=== PATIENT | female | born 1940 | race Caucasian/White ===

== ENCOUNTER → 2016-05-23 | Outpatient (CLI) | payer MEDICARE ==
[2016-05-23 13:12] LABS: Basophils % (A) 0 %; CHCM 32.6; Eosinophils # (A) 0.3 k/uL (0-0.7); Eosinophils % (A) 5 %; HCT 36.7 % (34.0-46.0); HGB 12.1 gm/dL (11.4-16.0); Luc % (Auto) 2; Lymphocytes # (A) 1.6 k/uL (1.0-4.8); Lymphocytes % (A) 27 %; MCH 30.4 pg (25.0-35.0); MCHC 32.9 g/dL (31.0-37.0); MCV 92.4 fL (80.0-100.0); Mean Platelet Volume 7.1; Monocytes # (A) 0.5 k/uL (0-1.0); Monocytes % (A) 8 %; Neutrophils # (A) 3.6 k/uL (1.3-7.7); Neutrophils % (A) 58 %; RBC 3.97 m/uL (3.80-5.40); RDW 14.6 % (11.5-15.5); WBC 6.1 k/uL (3.8-10.6); WBC (Perox) 5.92
[2016-05-23 13:18] LABS: Amorphous Sediment,Urine Rare /hpf; Appearance,Urine Cloudy (Clear); Bacteria,Urine Occasional /hpf; Bilirubin,Urine Negative (Negative); Glucose,Urine (UA) Negative (Negative); INR 1.1 (<1.1); Ketones,Urine Negative (Negative); Leukocyte Esterase,Urine Large (Negative); Mucus,Urine Rare /hpf; Nitrite,Urine Negative (Negative); Particle Count 5460; Protein,Urine Negative (Negative); Prothrombin Time 10.8 sec (9.0-12.0); RBC,Urine 2 /hpf (0-5); Specific Gravity,Urine 1.011 (1.001-1.035); Squamous Epithelial Cell,Urine 1 /hpf (0-4); UA Billing (MACRO vs. MICRO) MICRO; Urobilinogen,Urine <2.0 mg/dL (<2.0); WBC,Urine >182 /hpf (0-5)
[2016-05-23 13:20] LABS: Anion Gap 11 mmol/L; Carbon Dioxide 23 mmol/L (22-30); Chloride 109 mmol/L (98-107); Non-African American GFR(MDRD) >60 (>60 ml/min/1.73 sqM); Sodium 143 mmol/L (137-145)
[2016-05-23 13:30] LABS: Partial Thromboplastin Time 19.8 sec (22.0-30.0)
[2016-05-23 13:59] LABS: Blood Urea Nitrogen 25 mg/dL (7-17); Potassium 5.7 mmol/L (3.5-5.1)
== END | disposition home or self-care (01) ==
LOC: LABWHC1 12:34
PROVIDERS: ATTEND Specialist
DX: M48.06 Spinal stenosis, lumbar region (principal)
CPT/HCPCS: 36415; 80051; 81001; 82565; 84520; 85025; 85610; 85730; 87070

== ENCOUNTER → 2016-07-27 | Outpatient (CLI) | payer MEDICARE ==
[2016-07-27 12:46] LABS: Blood Urea Nitrogen 20 mg/dL (7-17); Non-African American GFR(MDRD) >60 (>60 ml/min/1.73 sqM)
== END | disposition home or self-care (01) ==
LOC: RADCTMAIN 11:59
PROVIDERS: ATTEND Internal Medicine Sleep Medicine
DX: R91.1 Solitary pulmonary nodule (principal)
CPT/HCPCS: 82565; 84520

== ENCOUNTER 2016-08-07 06:49 | Day surgery (SDC) | payer MEDICARE ==
[2016-08-03 13:32] VITALS: BMI 27.8
[~2016-08-07 06:49] MED LIST: LACTATED RINGERS 1,000 ML IV SCH; LIDOCAINE 1% 20 ML VIAL (10MG/ML) FOR IV START INTRADERMA PRN
[2016-08-07 07:15] VITALS: TEMP 97.8
[2016-08-07 07:38] LABS: Glucose,Whole Blood 71 mg/dL (75-99)
[2016-08-07] MEDS ORDERED: PROPOFOL 10 MG/ML 20 ML VIAL IV ONE (07:45)
--- NOTE | 2016-08-07 07:54 | P.GSHP ---
History of Present Illness H&P Date: 08/07/16 Chief Complaint: GI bleed This is a 76-year-old female who presents today for colonoscopy. She's had issues of GI bleed. - Constitutional Constitutional: Reports as per HPI Past Medical History Past Medical History: Asthma, Diabetes Mellitus, Hyperlipidemia, Hypertension, Myocardial Infarction (NM) Additional Past Medical History / Comment(s): HAD EPISODE OF RECTAL BLEEDING AT [facility] THIS YEAR. NM X 2 Last Myocardial Infarction Date:: 2009 History of Any Multi-Drug Resistant Organisms: None Reported Past Surgical History: Back Surgery, Heart Catheterization With Stent, Hysterectomy Additional Past Surgical History / Comment(s): BILAT CATARACTS REMOVED Past Anesthesia/Blood Transfusion Reactions: No Reported Reaction Date of Last Stent Placement:: 2009 Past Psychological History: Anxiety Smoking Status: Never smoker Past Alcohol Use History: Occasional Past Drug Use History: None Reported - Past Family History Father Family Medical History: Cancer Medications and Allergies Home Medications Medication Instructions Recorded Confirmed Type Insulin Lispro [humaLOG Kwikpen] 15 unit SQ 08/02/16 08/02/16 History Pioglitazone [Actos] 15 mg PO DAILY 08/02/16 08/02/16 History metFORMIN HCL [Glucophage] 500 mg PO BID 08/02/16 08/02/16 History ALPRAZolam [Xanax] 0.5 mg PO BID 08/03/16 08/03/16 History Aspirin 325 mg PO DAILY 08/03/16 08/03/16 History Atorvastatin [Lipitor] 20 mg PO HS 08/03/16 08/03/16 History Isosorbide Mononitrate ER [Imdur] 60 mg PO DAILY 08/03/16 08/03/16 History Metoprolol Succinate [Toprol XL] 25 mg PO BID 08/03/16 08/03/16 History Montelukast [Singulair] 10 mg PO DAILY 08/03/16 08/03/16 History amLODIPine BESYLATE/BENAZEPRIL 1 each PO DAILY 08/03/16 08/03/16 History [amLODIPine BESYLATE/BENAZEPRIL 5-20 mg] Allergies Allergy/AdvReac Type Severity Reaction Status Date / Time No Known Allergies Allergy Verified 08/02/16 13:04 Surgical - Exam Vital Signs Temp Pulse Resp BP Pulse Ox 97.8 F 71 14 162/63 100 08/07/16 07:14 08/07/16 07:14 08/07/16 07:14 08/07/16 07:14 08/07/16 07:14 - General well developed, no distress - Eyes PERRL - ENT normal pinna - Neck no masses - Respiratory normal expansion - Cardiovascular Rhythm: regular - Abdomen Abdomen: soft, non tender Results - Labs Abnormal Lab Results - Last 24 Hours (Table) 08/07/16 Range/Units 07:33 POC Glucose (mg/dL) 71 L (75-99) mg/dL Assessment and Plan Plan: GI bleed. We'll perform colonoscopy
--- NOTE | 2016-08-07 08:10 | P.OP ---
Date of Procedure: 08/07/16 Preoperative Diagnosis: GI bleed Postoperative Diagnosis: Right colon polyp Diverticulosis Internal and external hemorrhoids Procedure(s) Performed: Colonoscopy Implants: Anesthesia: MAC Surgeon: Jarett Richey Pathology: other (Right colon polyp) Condition: stable Disposition: PACU Indications for Procedure: Operative Findings: Description of Procedure: The patient's placed on the endoscopy table in the lateral position. She received IV sedation. Digital rectal exam was performed which revealed internal and external hemorrhoids. The flexible colonoscope was then placed patient anus and passed throughout the entire colon. The ileocecal valve was visualized. The cecum appeared normal. In the right colon there is a small sessile polyp was removed the forcep. There were some mild diverticular changes in the right colon. The scope was then brought back and the transverse colon and some more diverticular changes were seen. The scope summer back in the descending; and there is extensive diverticular changes. Scope was then brought back the rectum and this appeared normal. The scope was withdrawn for patient.
[2016-08-07 08:18] VITALS: RESP 16
[2016-08-07 08:34] VITALS: BP 173/73; PULSE 64
== END 2016-08-07 08:52 | disposition home or self-care (01) ==
LOC: ORWHC2ENDO 06:49
PROVIDERS: ATTEND Surgery
DX: D12.2 Benign neoplasm of ascending colon (principal); K57.30 Diverticulosis of large intestine without perforation or abscess without bleeding; K64.8 Other hemorrhoids; K64.4 Residual hemorrhoidal skin tags; E11.9 Type 2 diabetes mellitus without complications; Z79.84 Long term (current) use of oral hypoglycemic drugs; Z79.4 Long term (current) use of insulin; J45.909 Unspecified asthma, uncomplicated; E78.5 Hyperlipidemia, unspecified; I10 Essential (primary) hypertension; I25.2 Old myocardial infarction; F41.9 Anxiety disorder, unspecified; Z79.82 Long term (current) use of aspirin; Z79.899 Other long term (current) drug therapy
CPT/HCPCS: 88305; 45380; J2704

== ENCOUNTER → 2017-04-03 | Outpatient (CLI) | payer MEDICARE ==
--- NOTE | 2017-04-03 14:46 | XR ---
Left shoulder HISTORY: Left shoulder pain 3 views of the left shoulder No comparisons Postop changes are noted to the cervical spine. There is evidence of old granulomatous disease in the left hemithorax. Bone mineralization is reduced. Acromioclavicular joint arthropathy changes present . Alignment and joint spaces are maintained. IMPRESSION: No fracture or dislocation. Osteopenia. Follow-up as indicated. Additional findings above .
== END | disposition home or self-care (01) ==
LOC: RADXRMAIN 11:48
PROVIDERS: ATTEND Family Medicine
DX: M85.812 Other specified disorders of bone density and structure, left shoulder (principal)

== ENCOUNTER → 2017-07-02 | Outpatient (CLI) | payer MEDICARE ==
[2017-07-02 15:31] LABS: Basophils % (A) 0 %; Eosinophils # (A) 0.3 k/uL (0-0.7); Eosinophils % (A) 2 %; HCT 37.5 % (34.0-46.0); Lymphocytes # (A) 2.4 k/uL (1.0-4.8); Lymphocytes % (A) 20 %; MCH 29.9 pg (25.0-35.0); MCHC 31.9 g/dL (31.0-37.0); MCV 93.7 fL (80.0-100.0); Mean Platelet Volume 7.7; Monocytes # (A) 0.6 k/uL (0-1.0); Monocytes % (A) 5 %; Neutrophils # (A) 8.8 k/uL (1.3-7.7); Neutrophils % (A) 72 %; Platelet Count 268 k/uL (150-450); RDW 14.9 % (11.5-15.5); WBC 12.2 k/uL (3.8-10.6)
--- NOTE | 2017-07-02 15:35 | XR ---
EXAMINATION TYPE: XR chest 2V DATE OF EXAM: 07/02/2017 COMPARISON: Prior chest 04/12/2012 HISTORY: Adhesive capsulitis left shoulder, 3 TECHNIQUE: Frontal and lateral views of the chest are obtained. FINDINGS: There is no focal air space opacity, pleural effusion, or pneumothorax seen. The cardiac silhouette size is within normal limits. Postop changes are noted in the lumbar and cervical spine. There are prominent lung volumes present. Coronary artery calcifications are suspected. The osseous structures are intact. IMPRESSION: No acute cardiopulmonary process.
== END | disposition home or self-care (01) ==
LOC: RADXRMAIN 14:33
PROVIDERS: ATTEND Orthopaedic Surgery
DX: Z01.818 Encounter for other preprocedural examination (principal); R05 Cough; M75.02 Adhesive capsulitis of left shoulder; Z01.812 Encounter for preprocedural laboratory examination
CPT/HCPCS: 36415; 71046; 85025

== ENCOUNTER → 2017-07-10 | Day surgery (SDC) | payer MEDICARE ==
[2017-07-09 09:43] VITALS: BMI 27.4
--- NOTE | 2017-07-09 10:38 | HP ---
HISTORY AND PHYSICAL CHIEF COMPLAINT: Left shoulder pain and stiffness. HISTORY OF PRESENT ILLNESS: Patient is a 77-year-old, right-hand dominant, retired female who presents with progressive left shoulder pain and stiffness after an injury in January of 2017. She herself pulling herself up. She has been in therapy with minimal relief. She notes pain with attempted use along with progressive stiffness. She is having night symptoms. PAST MEDICAL HISTORY: Significant for asthma, type 2 diabetes, hypertension and heart disease. PAST SURGICAL HISTORY: Significant for previous spine surgery along with cardiac catheterization. CURRENT MEDICATIONS: 1. Actos. 2. Aspirin. 3. Imdur. 4. Insulin. 5. Lipitor. 6. Lotrel. 7. Singulair. 8. Toprol. 9. Xanax. She denies drug allergies. FAMILY HISTORY: Significant for cancer. SOCIAL HISTORY: Negative for current tobacco or alcohol use. 16 POINT REVIEW OF SYSTEMS: Otherwise reviewed and is noncontributory. PHYSICAL EXAMINATION: The patient is approximately 5 foot 2, 148 pounds of endomorphic habitus. HEENT exam is nonfocal. Neck is supple. On examination of her left shoulder, she has tenderness about the anterior subacromial space. Moderate subacromial crepitus is noted. Active range of motion, forward elevation 80 degrees, external rotation with the arm side 50 degrees, internal rotation to L2. Passively, I am able to forward elevate her to 100 degrees. Motor strength is 5-/5 for external rotation with the arm at side and 4+/5 for abduction. Impingement, and Neer test are positive. Her distal neurovascular exam, otherwise appears intact in the left upper extremity. X-rays of the left shoulder obtained in the office showed a type 2 acromion with maintained humeral head to acromial distance. IMPRESSION: 1. Left shoulder adhesive capsulitis. 2. Diabetes. RECOMMENDATIONS: I talked to the patient at length regarding her condition and treatment options. At this point she is quite symptomatic despite extensive conservative measures. After thorough discussion, she opts to proceed with manipulation under anesthesia with subacromial cortisone injection. We will likely perform that as an outpatient procedure utilizing IV sedation. Risks and benefits were discussed at length in layman's terms. MMODL / IJN: [id number] /
[~2017-07-10] MED LIST changes: +BUPIVACAINE (PF) 0.25% 30 ML VIAL INTRAARTIC ONE; +KETOROLAC 30 MG/ML 1 ML VIAL ONE; +PROPOFOL 10 MG/ML 20 ML VIAL IV ONE; +ceFAZolin IN SWFI 2 GM/20 ML SYRINGE IVP ONE; +methylPREDNISolone ACETATE 80 MG/ML 1 ML VIAL INTRAARTIC ONE
[2017-07-10 09:51] LABS: Glucose,Whole Blood 82 mg/dL (75-99)
--- NOTE | 2017-07-10 11:12 | P.OP ---
Date of Procedure: 07/10/17 Preoperative Diagnosis: Left shoulder adhesive capsulitis Postoperative Diagnosis: Same Procedure(s) Performed: Manipulation under anesthesia left shoulder with subacromial cortisone injection Anesthesia: MAC Surgeon: Blas Alexandra Estimated Blood Loss (ml): 0 Pathology: none sent Condition: stable Disposition: PACU Indications for Procedure: The patient is a 77-year-old female who presents with progressive left shoulder pain and stiffness after a previous injury. Clinically she was noted of evidence of significant adhesive capsulitis. A discussion of the risks and benefits of manipulation under anesthesia with subacromial cortisone injection was made with patient. She opted to proceed with that. Risks of this procedure to include fracture, dislocation, possible tendon rerupture, possible recurrence of stiffness and need for subsequent procedures was discussed. Informed consent was obtained. Operative Findings: As below Description of Procedure: The patient was brought to the operating room, and after induction of IV sedation, the left shoulder was gently manipulated. First with the arm at the side I obtained 60 of external rotation. Moderate adhesions were encountered. I then obtained full forward elevation. Again there was moderate adhesions encountered. I felt I had adequate christianity of passive motion at this point. The posterior shoulder was prepped with ChloraPrep. 80 mg of Depo- Medrol and 5 mL of quarter percent plain Marcaine was injected into the posterior subacromial space. She was then monitored until fully awake. No complications were incurred. There was no blood loss.
[2017-07-10 11:23] VITALS: TEMP 97.3
[2017-07-10] MEDS: MORPHINE SULFATE 4 MG/0.8 ML SYRINGE (INJ) IV PRN ×3 (11:25→11:30)
[2017-07-10 11:40] VITALS: RESP 16
[2017-07-10 12:52] VITALS: BP 150/69; PULSE 69
[2017-07-10 12:54] LABS: Glucose,Whole Blood 89 mg/dL (75-99)
== END | disposition home or self-care (01) ==
LOC: OR 08:40
PROVIDERS: ATTEND Orthopaedic Surgery
DX: M75.02 Adhesive capsulitis of left shoulder (principal); E11.9 Type 2 diabetes mellitus without complications; J45.909 Unspecified asthma, uncomplicated; I11.9 Hypertensive heart disease without heart failure; I25.10 Atherosclerotic heart disease of native coronary artery without angina pectoris; Z79.82 Long term (current) use of aspirin; Z79.4 Long term (current) use of insulin; Z79.899 Other long term (current) drug therapy
CPT/HCPCS: 23700; J1040; J1885; J2704; J0690; J2270

== ENCOUNTER → 2017-12-25 | Outpatient (CLI) | payer MEDICARE | END | disposition home or self-care (01) | LOC: LABPAT 13:45 | PROVIDERS: ATTEND Orthopaedic Surgery | DX: Z01.812 Encounter for preprocedural laboratory examination (principal); M16.11 Unilateral primary osteoarthritis, right hip | CPT/HCPCS: 87070 ==

== ENCOUNTER 2018-01-01 08:00 | Inpatient (IN) | payer MEDICARE ==
[2017-12-21 11:27] VITALS: BMI 28.5
--- NOTE | 2017-12-31 10:12 | HP ---
HISTORY AND PHYSICAL CHIEF COMPLAINT: Right hip pain. HISTORY OF PRESENT ILLNESS: The patient is a 77-year-old retired female who presents with progressive right hip pain secondary to osteoarthrosis despite extensive conservative measures. She notes that the pain from her arthrosis severely limits her normal function and activities. PAST MEDICAL HISTORY: Significant for arthritis, asthma, type 2 diabetes, hypertension and heart disease. PAST SURGICAL HISTORY: Significant for cardiac catheterization along with lumbar fusion with instrumentation. CURRENT MEDICATIONS: 1. Actos. 2. Aspirin. 3. Insulin. 4. Lipitor. 5. Lotrel. 6. Metformin. 7. Singulair. 8. Toprol. 9. Xanax. ALLERGIES: She denies drug allergies. FAMILY HISTORY: Significant for cancer. SOCIAL HISTORY: Negative for current tobacco or alcohol use. REVIEW OF SYSTEMS: Sixteen-point review of systems otherwise reviewed and is noncontributory. PHYSICAL EXAMINATION: On examination, the patient is approximately 5 feet 2 inches, 148 pounds of mesomorphic habitus. HEENT exam is nonfocal. Neck is supple. Passive motion of the right hip, flexion 75 degrees, external rotation with the hip flexed is 45 degrees, internal rotation is 0 degrees with pain. Clinically, she has got 1 cm shortening of the right lower extremity compared to the left. Her distal neurovascular exam appears intact in the right lower extremity. AP of the pelvis obtained in the office show severe bilateral hip osteoarthrosis. IMPRESSION: 1. Right hip severe osteoarthrosis. 2. History of heart disease. 3. Xug-qbtdarw-cxzdhzdkv diabetes. 4. History of lumbar spine fusion with instrumentation. RECOMMENDATIONS: I talked to the patient at length regarding her condition and treatment options. At this point, she is quite symptomatic and limited because of pain. After a thorough discussion, she opts to proceed with surgery. We will plan to proceed with right total hip arthroplasty utilizing a direct anterior approach. We will likely institute DVT prophylaxis postoperatively. MMODL / IJN: [id number] /
[~2018-01-01 08:00] MED LIST changes: +ACETAMINOPHEN TAB 500 MG TAB PO ONE; -BUPIVACAINE (PF) 0.25% 30 ML VIAL INTRAARTIC ONE; -KETOROLAC 30 MG/ML 1 ML VIAL ONE; -LACTATED RINGERS 1,000 ML IV SCH; -LIDOCAINE 1% 20 ML VIAL (10MG/ML) FOR IV START INTRADERMA PRN; +MELOXICAM 7.5 MG TAB PO ONE; +ONDANSETRON 4 MG/2 ML VIAL IVP ONE; -PROPOFOL 10 MG/ML 20 ML VIAL IV ONE; +TRANEXAMIC ACID 1,000 MG in SODIUM CHLORIDE 0.9% 50 ML IVPB ONE; +fentaNYL (PF) 50 MCG/ML 2 ML AMP IV PRN; -methylPREDNISolone ACETATE 80 MG/ML 1 ML VIAL INTRAARTIC ONE
[2018-01-01 09:26] LABS: Glucose,Whole Blood 108 mg/dL (75-99)
[2018-01-01] MEDS: LACTATED RINGERS 1,000 ML IV SCH ×2 (09:26→19:45)
[2018-01-01] MEDS ORDERED: SODIUM CHLORIDE 0.9% IRRIG 1,000 ML BTL IRRIGATION ONE (10:33)
[2018-01-01] MEDS ORDERED: TRANEXAMIC ACID 1,000 MG/10 ML VIAL ONE (10:33)
[2018-01-01] MEDS ORDERED: fentaNYL (PF) 50 MCG/ML 2 ML AMP ONE (10:33)
[2018-01-01] MEDS ORDERED: SODIUM CHLORIDE 0.9% 100 ML BAG ONE (10:33)
[2018-01-01] MEDS ORDERED: LACTATED RINGERS 1,000 ML IV ONE (10:33)
[2018-01-01] MEDS ORDERED: MIDAZOLAM 2 MG/2 ML VIAL ONE (10:33)
[2018-01-01] MEDS ORDERED: PROPOFOL 10 MG/ML 20 ML VIAL IV ONE (10:33)
[2018-01-01] MEDS ORDERED: HEPARIN SODIUM,PORCINE 10,000 UNIT/ML 1 ML VIAL ONE (10:33)
[2018-01-01] MEDS ORDERED: ceFAZolin 3,000 MG in SODIUM CHLORIDE 0.9% IRRIGATIO 3,000 ML IRRIGATION ONE (11:29)
[2018-01-01] MEDS ORDERED: NALOXONE 0.4 MG/ML 1 ML VIAL IV PRN (12:50)
[2018-01-01] MEDS ORDERED: ACETAMINOPHEN TAB 325 MG TAB PO PRN (12:50)
[2018-01-01] MEDS ORDERED: ONDANSETRON 4 MG/2 ML VIAL IVP PRN (12:50)
[2018-01-01] MEDS ORDERED: HYDROmorphone 1 MG/ML 1 ML SYRINGE IVP PRN ×2 (12:50)
[2018-01-01] MEDS ORDERED: MAGNESIUM HYDROXIDE 2,400 MG/10 ML CUP PO PRN (12:50)
[2018-01-01] MEDS ORDERED: HYDROcodone/APAP 5-325MG 1 EACH TAB PO PRN (12:50)
--- NOTE | 2018-01-01 12:57 | XR ---
EXAMINATION TYPE: XR Hip Limited RT DATE OF EXAM: 01/01/2018 COMPARISON: NONE HISTORY: Postop TECHNIQUE: One view submitted. FINDINGS: There is postsurgical change in near anatomic alignment. There is soft tissue edema and emphysema. IMPRESSION: 1. Postoperative change. Appears in near-anatomic alignment.
--- NOTE | 2018-01-01 12:58 | FL ---
EXAMINATION TYPE: FL guidance operating room DATE OF EXAM: 01/01/2018 HISTORY: Flouroscopy time 1 minute and 37 seconds of fluoroscopy provided. IMPRESSION: 1. Fluoroscopy time.
--- NOTE | 2018-01-01 13:19 | P.OP ---
Date of Procedure: 01/01/18 Preoperative Diagnosis: Right hip severe osteoarthrosis Postoperative Diagnosis: Same Procedure(s) Performed: Right total hip itbffnwbhpjy-qxdxz-wsg-anterior approach Implants: Depuy Corail size 13 KLA press-fit femoral stem, +1/32 mm ceramic head, 52 mm Triangle acetabular shell with neutral polyethylene liner Anesthesia: spinal Surgeon: Blas Alexandra Film Projector Operator #1: Torrey Schaffer Estimated Blood Loss (ml): 250 Pathology: other (Femoral head) Condition: stable Disposition: PACU Indications for Procedure: The patient is a 77-year-old female who presents with progressive right hip pain secondary to osteoarthrosis despite conservative measures. A discussion of the risks and benefits of continued conservative measures versus operative intervention was made with patient. She opted to proceed with surgery. Operative risks to include infection, neurovascular injury, development of blood clots, possible component loosening, dislocation, leg length discrepancy and possible need for subsequent procedures was discussed. Informed consent was obtained. Operative Findings: As below Description of Procedure: The patient was brought to the operating room, and after induction of spinal anesthesia was positioned on the Kera table. Bony prominences were appropriately padded. The right lower extremity was prepped and draped in normal fashion. Fluoroscopy was was used to check that the pelvis was level. Preoperative templating was previously performed to estimated component positioning and sizes. A 10 cm incision was then made starting 3 finger breaths posterior and 2 fingerbreadths distal to the ASIS in line with the femoral shaft. The skin was incised sharply. Subcutaneous tissues were divided sharply. The fascia was identified. It was split anterior to the perforators. Blunt dissection was utilized to develop the plane between the tensor fascia lucía and sartorius. The posterior fascia was opened with electrocautery. The lateral circumflex vessels were identified and coagulative prior to suctioning. The rectus was elevated off the anterior capsule. A blunt retractor was placed along the superior femoral neck. A second retractor was placed along the anterior acetabular rim. The third retractors placed along the inferior femoral neck. A wide capsulotomy was performed. With the hip in 30 of external rotation, the femoral neck osteotomy was performed with a sagittal saw at a 45 of the shaft proximally 1 cm above the level of the lesser trochanter. The head was then extracted. The acetabulum was inspected. Anterior and posterior retractors were placed along the acetabulum. The remaining capsular labral tissue was sharply debrided clearly defining the acetabular margins. I began reaming with a 45 mm reamer taking care to initially medialize, then reaming at 45 of abduction and 20 of anteversion. Sequential reaming is performed up to 51 mm. This was done with the aid of fluoroscopy. A 52 mm acetabular shell was inserted in the same orientation and was fully seated. There was good rim fit and stability. The trial component was removed and the final one inserted in the same orientation. This is done with the aid of fluoroscopy. Again there is good purchase. A neutral polyethylene liner was then gently impacted. Attention was then paid towards preparing the proximal femur. The hip was externally rotated to 130 and fully extended and adducted. A retractor was placed along the medial calcar and over the greater trochanter. The central region was debrided exposing the whole femoral neck. Residual lateral neck was resected. A canal finder was used to find the femoral canal. Sequential broaching was performed up to a size 13 broach. This was parallel to the posterior cortex. A calcar mill was used to fashion the medial calcar. Trial reduction was obtained with a KLA neck along with a 32 mm +1 trial head. Fluoroscopy was used to check the adequacy of positioning and overall leg length. Hip was gently dislocated. The trial components were then removed. The final size 13 collared KLA femoral stem was inserted parallel to the posterior cortex and was fully seated. There was good rotational stability. A 32 mm +1 ceramic head was gently impacted. The hip was gently reduced. Again fluoroscopic view showed adequate placement of the implant along with overall muslim of leg length. Stability was checked at 60 of external rotation and 50 of extension of the hip. The wound was irrigated with pulsatile lavage. The fascia was closed with running 0 Vicryl suture. There is minimal drainage therefore a deep drain was not placed. Cell Saver was given back. The subcutaneous tissues were reapproximated interrupted 2-0 Vicryl sutures. The skin was reapproximated with 3-0 subcuticular strata fix suture. Skin tape and adhesive was applied. A sterile dressing was applied. The patient was then awoken from sedation and transferred to the recovery room in good condition. Blood loss was estimated at 250 mL. No complications were incurred. Sponge and needle counts were correct at the end the case.
[2018-01-01 13:24] LABS: Glucose,Whole Blood 93 mg/dL (75-99)
[2018-01-01] MEDS: HYDROmorphone 1 MG/ML 1 ML SYRINGE IVP PRN ×2 (13:36→14:32)
--- NOTE | 2018-01-01 13:42 | XR ---
EXAMINATION TYPE: XR Hip Limited RT DATE OF EXAM: 01/01/2018 COMPARISON: NONE HISTORY: Postop TECHNIQUE: One view submitted. FINDINGS: There is a prosthetic hip in near anatomic alignment. There is soft tissue edema and emphysema. IMPRESSION: 1. Postoperative change. Appears in near-anatomic alignment.
[2018-01-01] MEDS: ceFAZolin IN SWFI 2 GM/20 ML SYRINGE IVP SCH (18:29)
[2018-01-01] MEDS ORDERED: ALBUTEROL NEBULIZED 2.5 MG/3 ML INHALATION PRN (20:06)
[2018-01-01 20:17] LABS: Glucose,Whole Blood 115 mg/dL (75-99)
[2018-01-01] MEDS ORDERED: MONTELUKAST 10 MG TAB PO SCH (21:00)
[2018-01-01] MEDS ORDERED: ATORVASTATIN 20 MG TAB PO SCH (21:00)
[2018-01-01] MEDS ORDERED: SENNOSIDES-DOCUSATE SODIUM 1 EACH TAB PO SCH (21:00)
[2018-01-01] MEDS ORDERED: PIOGLITAZONE 30 MG TAB PO SCH (21:00)
[2018-01-01] MEDS: INSULIN ASPART 100 UNIT/ML 1 ML 10 ML VIAL SQ SCH (22:13)
[2018-01-01] MEDS: METOPROLOL SUCCINATE (ER) 25 MG TAB.ER.24H PO SCH (22:13)
[2018-01-01] MEDS: ALPRAZolam 0.5 MG TAB PO SCH (22:13)
[2018-01-01] MEDS: metFORMIN 500 MG TAB PO SCH (22:14)
[2018-01-01] MEDS: HYDROcodone/APAP 5-325MG 1 EACH TAB PO PRN (22:18)
[2018-01-02] MEDS: ceFAZolin IN SWFI 2 GM/20 ML SYRINGE IVP SCH (02:41)
[2018-01-02 07:11] LABS: Glucose,Whole Blood 124 mg/dL (75-99)
[2018-01-02] MEDS: INSULIN ASPART 100 UNIT/ML 1 ML 10 ML VIAL SQ SCH ×2 (07:24→11:38)
[2018-01-02] MEDS: metFORMIN 500 MG TAB PO SCH (07:28)
[2018-01-02 08:25] VITALS: BP 174/63; PULSE 73; RESP 17; TEMP 97.4
[2018-01-02] MEDS: ALPRAZolam 0.5 MG TAB PO SCH (08:44)
[2018-01-02] MEDS: METOPROLOL SUCCINATE (ER) 25 MG TAB.ER.24H PO SCH (08:45)
[2018-01-02] MEDS: HYDROcodone/APAP 5-325MG 1 EACH TAB PO PRN ×2 (08:45→13:52)
[2018-01-02] MEDS ORDERED: LISINOPRIL 20 MG TAB PO SCH (09:00)
[2018-01-02] MEDS ORDERED: RIVAROXABAN 10 MG TAB PO SCH (09:00)
[2018-01-02] MEDS ORDERED: amLODIPine 5 MG TAB PO SCH (09:00)
[2018-01-02] MEDS ORDERED: ISOSORBIDE MONONITRATE ER 60 MG TAB.ER.24H PO SCH (09:00)
[2018-01-02] MEDS ORDERED: LACTOBACILLUS ACIDOPH & BULGAR 1 EACH PACKET PO SCH (09:00)
[2018-01-02 10:32] LABS: Basophils % (A) 0 %; Eosinophils # (A) 0.3 k/uL (0-0.7); Eosinophils % (A) 3 %; HCT 34.1 % (34.0-46.0); HGB 11.1 gm/dL (11.4-16.0); Lymphocytes # (A) 1.3 k/uL (1.0-4.8); Lymphocytes % (A) 16 %; MCH 31.4 pg (25.0-35.0); MCHC 32.6 g/dL (31.0-37.0); Monocytes # (A) 0.8 k/uL (0-1.0); Monocytes % (A) 9 %; Neutrophils # (A) 5.8 k/uL (1.3-7.7); Neutrophils % (A) 71 %; Platelet Count 261 k/uL (150-450); RBC 3.55 m/uL (3.80-5.40); RDW 13.9 % (11.5-15.5); WBC 8.2 k/uL (3.8-10.6)
[2018-01-02 10:35] LABS: MCV 96.2 fL (80.0-100.0)
[2018-01-02 11:57] LABS: Glucose,Whole Blood 139 mg/dL (75-99)
--- NOTE | 2018-01-02 12:22 | P.PN ---
Subjective Progress Note Date: 01/02/18 Principal diagnosis: s/p right alysha Patient evaluated at bedside today, she resting comfortably. Her pain is controlled. She's ambulate well with therapy. She denies any chest pain, shortness of breath, fever or chills. Objective - Vital Signs Vital signs: Vital Signs Temp 97.4 F L 01/02/18 07:00 Pulse 73 01/02/18 07:00 Resp 17 01/02/18 07:00 BP 174/63 01/02/18 07:00 Pulse Ox 92 L 01/02/18 07:00 Intake & Output 01/01/18 01/02/18 01/02/18 18:59 06:59 18:59 Intake Total 1601 480 Output Total 250 Balance 1351 480 Weight 70.76 kg Intake: IV 1601 Intake, IV Titration 480 Amount Lactated Ringers 1,000 ml 480 @ 20 mls/hr IV .Q24H FARIBA Rx#:[id number] Output: Estimated Blood Loss 250 Other: Voiding Method Toilet # Voids 1 - Exam Right lower extremity: Incision is clean, dry, and intact. Postop tape is in good condition. There is minimal soft tissue swelling and ecchymosis surrounding the medial and lateral aspects of the incision. Calf is soft, no tenderness with palpation. Plantar flexion, dorsiflexion, EHL, FHL are intact. Sensory exam to light touch throughout the extremity is intact, dorsal pedis pulses 2+. - Labs CBC & Chem 7: 01/02/18 08:58 Labs: Abnormal Lab Results - Last 24 Hours (Table) 01/01/18 01/02/18 01/02/18 Range/Units 20:16 07:04 08:58 RBC 3.55 L (3.80-5.40) m/uL Hgb 11.1 L (11.4-16.0) gm/dL POC Glucose (mg/dL) 115 H 124 H (75-99) mg/dL 01/02/18 Range/Units 11:32 RBC (3.80-5.40) m/uL Hgb (11.4-16.0) gm/dL POC Glucose (mg/dL) 139 H (75-99) mg/dL Assessment and Plan Plan: Assessment: Postoperative day #1 status post right total hip arthroplasty Plan: Pain control, we will discharge home on oral medication GI and DVT prophylaxis, Eliquis 2.5mg bid for 1 month Wound care instructions discussed Icing and elevating techniques discussed Medical recommendations Discharge planning: Patient will be discharged home today Time with Patient: Less than 30
--- NOTE | 2018-01-02 12:34 | P.DS ---
Providers Date of admission: 01/01/18 08:50 Expected date of discharge: 01/02/18 Attending physician: Blas Alexandra Consults: 01/01/18 12:50 Consult Physician Routine Consulting Provider: Randolph Hernandez Reason/Comments: medical management Do you want consulting provider notified?: Yes Primary care physician: Randolph Hernandez [facility] Course: Date of admission: 01/01/2018 Date of discharge: 01/02/2018 Admission diagnosis: Status post right total hip arthroplasty Discharge diagnosis: Same Attending physician: Dr. Alexandra Surgical procedures: Status post right total hip arthroplasty Brief history: Patient is a 77-year-old female with a history of progressive primary right hip osteoarthritis. At this point patient has failed conservative treatment measures and has opted to proceed with a elective right total hip arthroplasty. Hospital course: Details of patient's surgery can be found in operative report. Patient tolerated the procedure well and was subsequently transported to orthopedic floor. Patient's orthopeidc and medical care was provided daily. Patient had daily laboratory tests performed for evaluation of overall blood counts. Patient had daily physical therapy to include strengthening range of motion as well as education with walker ambulation. Patient was treated with Xarelto for their postoperative DVT prophylaxis during their inpatient stay. Patient was noted to have a relatively uneventful postoperative course. Patient reported satisfactory pain control with oral pain medications by postoperative day 0. Patient showed satisfactory progress with physical therapy. Patient moved steadily through the program and had no difficulty meeting the goals by postoperative day 1. Given patient's otherwise satisfactory course and having met physical therapy goals, plan is to discharge patient home on postoperative day 1. Discharge condition/disposition: Patient will be discharged home in stable condition. Discharge medications: Instructions are given on resumption of patient's normal daily medications per primary care recommendation, in addition patient will be prescribed Delphia 5 mg/325 mg, Eliquis 2.5mg. Discharge instructions: 1. Wound care and infection precautions, keep incision dry and covered while showering, no lotions, creams, moisturizers. No soaking, tubs, pools, hottubs. Do not scrub over the incision. 2. Weight-bear as tolerated with walker / cane until follow-up. 3. Ice and elevate when necessary. Do not exceed 20 minutes per hour with ice pack. 4. Utilize compression sleeve until seen at first follow up appointment. 5. Visiting nursing care. 6. Home physical therapy 7. Pain meds and anticoagulants per prescription. 8. Pain medication has potential to cause constipation. Increase oral fluid and fiber intake. Contact primary care provider if you have not had a bowel movement within 48 hours after discharge 9. No anti-inflammatory medication until discussed at first post operative visit, this including Motrin, Aleve, Mobic, Diclofenac. 10. Follow up in office at 2 weeks postop with Bernardino Schaffer PA-C 11. Follow up with your primary care doctor 7-10 days after discharge. 12. Contact [facility] with any questions, . Procedures: Right total hip arthroplasty Patient Condition at Discharge: Good Plan - Discharge Summary Discharge Rx Participant: Yes New Discharge Prescriptions: New Apixaban [Eliquis] 2.5 mg PO BID #60 tab Hydrocodone/Acetaminophen [Delphia 5-325] 1 - 2 each PO Q6HR PRN #40 tab PRN Reason: Pain No Action metFORMIN HCL [Glucophage] 500 mg PO BID Insulin Lispro [humaLOG Kwikpen] 15 unit SQ HS Isosorbide Mononitrate ER [Imdur] 60 mg PO DAILY Aspirin 650 mg PO HS Montelukast [Singulair] 10 mg PO HS Metoprolol Succinate [Toprol XL] 25 mg PO BID Atorvastatin [Lipitor] 20 mg PO HS ALPRAZolam [Xanax] 0.5 mg PO BID Pioglitazone [Actos] 30 mg PO HS amLODIPine BESYLATE/BENAZEPRIL [Lotrel 5-20 mg Capsule] 1 cap PO DAILY Insulin Lispro Protamin/Lispro [humaLOG Mix 75-25 Kwikpen] 12 unit SQ PC- SUPPER Albuterol Inhaler [Ventolin Hfa Inhaler] 3 puff INHALATION RT-BID PRN PRN Reason: sob L.acidoph,Paracasei, B.lactis [Probiotic] 1 cap PO DAILY Discharge Medication List Insulin Lispro [humaLOG Kwikpen] 15 unit SQ HS 08/02/16 [History] metFORMIN HCL [Glucophage] 500 mg PO BID 08/02/16 [History] ALPRAZolam [Xanax] 0.5 mg PO BID 08/03/16 [History] Atorvastatin [Lipitor] 20 mg PO HS 08/03/16 [History] Isosorbide Mononitrate ER [Imdur] 60 mg PO DAILY 08/03/16 [History] Metoprolol Succinate [Toprol XL] 25 mg PO BID 08/03/16 [History] Montelukast [Singulair] 10 mg PO HS 08/03/16 [History] Albuterol Inhaler [Ventolin Hfa Inhaler] 3 puff INHALATION RT-BID PRN 12/21/17 [ History] Insulin Lispro Protamin/Lispro [humaLOG Mix 75-25 Kwikpen] 12 unit SQ PC-SUPPER 12/21/17 [History] L.acidoph,Paracasei, B.lactis [Probiotic] 1 cap PO DAILY 12/21/17 [History] Pioglitazone [Actos] 30 mg PO HS 12/21/17 [History] amLODIPine BESYLATE/BENAZEPRIL [Lotrel 5-20 mg Capsule] 1 cap PO DAILY 12/21/17 [History] Apixaban [Eliquis] 2.5 mg PO BID #60 tab 01/02/18 [Rx] Hydrocodone/Acetaminophen [Delphia 5-325] 1 - 2 each PO Q6HR PRN #40 tab 01/02/18 [Rx] Follow up Appointment(s)/Referral(s): [facility] Visiting Nurse, [NON-STAFF] - Torrey Schaffer PAC [[employer]] - 2 Weeks Patient Instructions/Handouts: Total Hip Replacement (DC) Activity/Diet/Wound Care/Special Instructions: Orthopedic Discharge Instructions: 1. Wound care and infection precautions, keep incision dry and covered while showering, no lotions, creams, moisturizers. No soaking, pools, hot tubs. Do not scrub over incision. 2. Weight-bear as tolerated with walker / cane until follow-up. 3. Ice and elevate when necessary. Do not exceed 20 minutes per hour with ice pack. 4. Utilize compression sleeve until seen at first follow up appointment. 5. Pain meds and anticoagulants per prescription. 6. Pain medication has potential to cause constipation. Increase oral fluid and fiber intake. Contact primary care provider if you have not had a bowel movement within 48 hours after discharge. 7. No anti-inflammatory medication until discussed at first post operative visit, this including Motrin, Aleve, Mobic, Diclofenac. 8. Follow up in office at 2 weeks postop with Bernardino Schaffer PA-C 9. Follow up with your primary care doctor 7-10 days after discharge. 10. Contact [facility] with any questions, . Discharge Disposition: HOME WITH HOME HEALTH SERVICES
--- NOTE | 2018-01-02 16:08 | CONS ---
CONSULTATION Conchita is a pleasant 77-year-old white female who was admitted after undergoing a right anterior hip replacement with Dr. Blas Alexandra. She underwent pulmonary evaluation prior to this procedure as well from Dr. Julián Ramey. She was seen previously in my office within the last 30 days. She has failed all outpatient modalities because of the right degenerative arthritic hip and failed outpatient conservative treatment. She elected to go through total hip arthroplasty with anterior approach through Dr. Alexandra' service. I am currently seeing her postoperatively for medical management and diabetes management. ALLERGIES: No known drug allergies. MEDICATIONS: Actos, albuterol, Humalog, Lipitor, Lotrel, and metformin, metoprolol, Singulair, Ventolin, Xanax, and she just finished a course of Zithromax and Medrol Dosepak. PAST MEDICAL HISTORY: Significant for hyperlipidemia, diabetes type 2, asthma/COPD, coronary artery disease and history of myocardial infarction, generalized anxiety disorder. SURGICAL HISTORY: She had a cervical fusion and hysterectomy. SOCIAL HISTORY: She denies any tobacco or alcohol. FAMILY HISTORY: Her father had lung cancer. PHYSICAL EXAM: The patient is alert, oriented, and very happy to see me. She is in no acute distress. She says she went thru surgery pretty well. HEENT: HEAD: Normocephalic and atraumatic. NECK: Supple. No JVD. HEART: Regular rate and rhythm. LUNGS: Clear to auscultation without adventitious breath sounds. ABDOMEN: Soft, nontender. No rebound, rigidity, or guarding. Skin is warm and dry to palpation without lesions. NEUROLOGICAL: Cranial nerves 2-12 are grossly intact. IMPRESSION: 1. Postoperative total right hip arthroplasty. 2. Diabetes type 2. 3. Coronary artery disease, stable. 4. Asthma, stable. 5. Anxiety. PLAN: Continue postoperative care. Physical therapy, DVT prophylaxis. Pain control. Thank you for allowing me to participate in this patient's care. If I can be any further assistance, please do not hesitate to contact me. MMRONNYL / KIRSTENN: [id number] /
== END 2018-01-02 15:18 | disposition home health service (06) | DRG 470 ==
LOC: 2ORMAIN 08:50 → 4SSUR 14:49
PROVIDERS: ADMIT Orthopaedic Surgery; ATTEND Orthopaedic Surgery
PROC: 0SR904A Replacement of Right Hip Joint with Ceramic on Polyethylene Synthetic Substitute, Uncemented, Open Approach (ICD-10-PCS; principal; 2018-01-01 10:40)
DX: M16.11 Unilateral primary osteoarthritis, right hip (principal); E11.9 Type 2 diabetes mellitus without complications; E78.5 Hyperlipidemia, unspecified; F41.1 Generalized anxiety disorder; I10 Essential (primary) hypertension; I25.10 Atherosclerotic heart disease of native coronary artery without angina pectoris; I25.2 Old myocardial infarction; J44.9 Chronic obstructive pulmonary disease, unspecified; Z79.84 Long term (current) use of oral hypoglycemic drugs; Z80.1 Family history of malignant neoplasm of trachea, bronchus and lung; Z98.1 Arthrodesis status; Z90.710 Acquired absence of both cervix and uterus; Z79.82 Long term (current) use of aspirin; Z79.899 Other long term (current) drug therapy
CPT/HCPCS: 36415; 73501; 85025; 86850; 86891; 86900; 86901; 88300

== ENCOUNTER → 2018-07-30 | Outpatient (CLI) | payer MEDICARE ==
--- NOTE | 2018-07-30 17:30 | MR ---
EXAMINATION TYPE: MR brain wo con DATE OF EXAM: 07/30/2018 COMPARISON: NONE HISTORY: Epilepsy, seizure T1-weighted sagittal, T2, FLAIR, and diffusion axial, and T2 coronal coronal views of the brain are s ubmitted. There is no evidence of acute ischemia. Moderate generalized degenerative change. Nonspecific areas o f abnormal signal involving the white matter, basal ganglia and maurice likely in the basis of remote is chemic change. No midline shift. Changes of chronic sinusitis noted. Nasal septal deviation noted hyperostosis of the frontal calvariu m. Thinning of the corpus callosum likely chronic. Degenerative change of the visualized cervical spi ne. There is no mass effect. Craniocervical junction maintained. Sella turcica has a normal appearance. No cerebellopontine angle mass. IMPRESSION: 1. Degenerative and nonspecific white matter changes most typical remote microvascular ischemia. 2. Findings suggest remote lacunar infarcts involving the basal ganglia and maurice.
== END | disposition home or self-care (01) ==
LOC: RADMRIMAIN 08:07
PROVIDERS: ATTEND Psychiatry & Neurology Neurology
DX: G31.9 Degenerative disease of nervous system, unspecified (principal); G40.209 Localization-related (focal) (partial) symptomatic epilepsy and epileptic syndromes with complex partial seizures, not intractable, without status epilepticus
CPT/HCPCS: 70551

== ENCOUNTER 2018-08-18 10:57 | Emergency (ER) | payer MEDICARE ==
[2018-08-18 11:07] VITALS: BP 186/101; PULSE 79; RESP 18; TEMP 97.2
--- NOTE | 2018-08-18 11:14 | ED ---
Upper Extremity HPI - General Chief Complaint: Extremity Injury, Upper Stated Complaint: lt shoulder injury Time Seen by Provider: 08/18/18 11:00 Source: patient, EMS Mode of arrival: EMS Limitations: no limitations - History of Present Illness Initial Comments: This a 78-year-old female presents emergency Department chief complaint left shoulder pain. Patient states she had a trip and fall at tenderness. Patient fell onto her left shoulder. Patient denies any head injury no loss conscious. Patient has minimal pain at rest only pain with movement. Patient states she does not want any pain meds at this time. Patient states that she does see Dr. Toth orthopedic physician. Patient had right hip surgery last year. Patient denies any back pain, hip pain, nausea, vomiting and diarrhea constipation - Related Data Home Medications Medication Instructions Recorded Confirmed Insulin Lispro [humaLOG Kwikpen] 15 unit SQ HS 08/02/16 01/01/18 metFORMIN HCL [Glucophage] 500 mg PO BID 08/02/16 01/01/18 ALPRAZolam [Xanax] 0.5 mg PO BID 08/03/16 01/01/18 Atorvastatin [Lipitor] 20 mg PO HS 08/03/16 01/01/18 Isosorbide Mononitrate ER [Imdur] 60 mg PO DAILY 08/03/16 01/01/18 Metoprolol Succinate [Toprol XL] 25 mg PO BID 08/03/16 01/01/18 Montelukast [Singulair] 10 mg PO HS 08/03/16 01/01/18 Albuterol Inhaler [Ventolin Hfa 3 puff INHALATION RT-BID PRN 12/21/17 01/01/18 Inhaler] Insulin Lispro Protamin/Lispro 12 unit SQ PC-SUPPER 12/21/17 01/01/18 [humaLOG Mix 75-25 Kwikpen] L.acidoph,Paracasei, B.lactis 1 cap PO DAILY 12/21/17 01/01/18 [Probiotic] Pioglitazone [Actos] 30 mg PO HS 12/21/17 01/01/18 amLODIPine BESYLATE/BENAZEPRIL 1 cap PO DAILY 12/21/17 01/01/18 [Lotrel 5-20 mg Capsule] Previous Rx's Medication Instructions Recorded Apixaban [Eliquis] 2.5 mg PO BID #60 tab 01/02/18 Hydrocodone/Acetaminophen [Cabot 1 - 2 each PO Q6HR PRN #40 tab 01/02/18 5-325] Allergies Allergy/AdvReac Type Severity Reaction Status Date / Time No Known Allergies Allergy Verified 01/01/18 09:14 Review of Systems ROS Statement: Those systems with pertinent positive or pertinent negative responses have been documented in the HPI. ROS Other: All systems not noted in ROS Statement are negative. Past Medical History Past Medical History: Asthma, Diabetes Mellitus, Hyperlipidemia, Hypertension, Myocardial Infarction ([place]) Additional Past Medical History / Comment(s): L shoulder pain. Finished steroid therapy 2 weeks ago for an asthma attack. Last Myocardial Infarction Date:: 2007 History of Any Multi-Drug Resistant Organisms: None Reported Past Surgical History: Back Surgery, Heart Catheterization With Stent, Hysterectomy Additional Past Surgical History / Comment(s): Neck surgery Past Anesthesia/Blood Transfusion Reactions: No Reported Reaction Additional Past Anesthesia/Blood Transfusion Reaction / Comment(s): States she has very small veins and would like to request the Anesthesiologist to start her IV. Date of Last Stent Placement:: 2007 Past Psychological History: No Psychological Hx Reported Smoking Status: Never smoker Past Alcohol Use History: Occasional Past Drug Use History: None Reported - Past Family History Father Family Medical History: Cancer Additional Family Medical History / Comment(s): Lung Sister(s) Family Medical History: Pulmonary Embolus General Exam General appearance: alert, in no apparent distress Head exam: Present: atraumatic, normocephalic, normal inspection Eye exam: Present: normal appearance, PERRL, EOMI. Absent: scleral icterus, conjunctival injection, periorbital swelling ENT exam: Present: normal exam, mucous membranes moist Neck exam: Present: normal inspection, full ROM. Absent: tenderness, meningismus, lymphadenopathy Respiratory exam: Present: normal lung sounds bilaterally. Absent: respiratory distress, wheezes, rales, rhonchi, stridor Cardiovascular Exam: Present: regular rate, normal rhythm, normal heart sounds. 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 Absent: rash Course Vital Signs 08/18/18 10:59 Temperature 97.2 F L Pulse Rate 79 Respiratory 18 Rate Blood Pressure 186/101 O2 Sat by Pulse 100 Oximetry Medical Decision Making - Medical Decision Making 77-year-old female presented to the emergency room for fall left arm injury. Patient has a left proximal humeral fracture. Patient was placed in a sling and follow-up with orthopedic physician Dr. Alexandra. Disposition Clinical Impression: Left humeral fracture Disposition: HOME SELF-CARE Condition: Stable Instructions (If sedation given, give patient instructions): Proximal Humerus Fracture (ED) Additional Instructions: Please return to the Emergency Department if symptoms worsen or any other concerns. Is patient prescribed a controlled substance at d/c from ED?: No Referrals: Randolph Hernandez DO [Primary Care Provider] - 1-2 days Blas Alexandra MD [STAFF PHYSICIAN] - 1-2 days Time of Disposition: 11:30
--- NOTE | 2018-08-18 11:58 | XR ---
EXAMINATION TYPE: XR shoulder limited LT , 2 VIEWS DATE OF EXAM ORDERED: 08/18/2018 HISTORY: Pain. COMPARISON: Previous study dated 04/03/2017. FINDINGS: There is been a previous interpedicular fusion of the lower cervical spine. There is a comminuted fracture of the left humeral head and neck with minimal foreshortening and mini mal displacement. IMPRESSION: COMMINUTED FRACTURE THE LEFT HUMERAL HEAD NECK WITH MINIMAL DISPLACEMENT AND FORESHORTENING. CODE A: INITIAL ENCOUNTER FOR CLOSED FRACTURE.
== END 2018-08-18 11:42 | disposition home or self-care (01) ==
LOC: EC 10:57
DX: S42.202A Unspecified fracture of upper end of left humerus, initial encounter for closed fracture (principal); J45.909 Unspecified asthma, uncomplicated; E11.9 Type 2 diabetes mellitus without complications; E78.5 Hyperlipidemia, unspecified; I10 Essential (primary) hypertension; I25.2 Old myocardial infarction; Z79.4 Long term (current) use of insulin; Z79.899 Other long term (current) drug therapy; Z95.5 Presence of coronary angioplasty implant and graft; W01.0XXA Fall on same level from slipping, tripping and stumbling without subsequent striking against object, initial encounter; Y93.73 Activity, racquet and hand sports; Y92.89 Other specified places as the place of occurrence of the external cause
CPT/HCPCS: 99283

== ENCOUNTER → 2020-06-11 | Outpatient (CLI) | payer MEDICARE ==
--- NOTE | 2020-06-11 16:01 | XR ---
KUB HISTORY: Left flank pain, hematuria Frontal KUB submitted, no comparisons Postop changes are noted to the lumbosacral spine, right hip. Lung bases are clear. There are dense v ascular calcifications noted incidentally. There is no evident bowel obstruction or pneumoperitoneum. Scattered calcifications in the pelvis may represent phleboliths. IMPRESSION: Indeterminate pelvic calcifications. Postop changes.
== END | disposition home or self-care (01) ==
LOC: LABWHC1 14:42
PROVIDERS: ATTEND Nurse Practitioner Family
DX: R10.9 Unspecified abdominal pain (principal); Z98.890 Other specified postprocedural states
CPT/HCPCS: 74018

== ENCOUNTER 2021-02-18 17:45 | Inpatient (IN) | payer MEDICARE ==
[2021-02-18] MEDS ORDERED: SODIUM CHLORIDE 0.9% 500 ML 500 ML IV STA (17:47)
--- NOTE | 2021-02-18 17:57 | ED ---
General Adult HPI - General Stated complaint: stroke symptoms Time Seen by Provider: 02/18/21 17:47 Source: patient, family, EMS, RN notes reviewed, old records reviewed Mode of arrival: EMS Limitations: altered mental status - History of Present Illness Initial comments: 81-year-old female who presents with suspected stroke. Patient evaluated as a code stroke activation. She developed confusion and expressive aphasia at 1620. She has a previous history diabetes and CAD. This history is reported from the paramedics. Family is not initially available and the patient is unable to give a detailed history. She denies pain complaints. She will follow some simple commands. - Related Data Home Medications Medication Instructions Recorded Confirmed Insulin Lispro [humaLOG Kwikpen] 15 unit SQ HS 08/02/16 01/01/18 metFORMIN HCL [Glucophage] 500 mg PO BID 08/02/16 01/01/18 ALPRAZolam [Xanax] 0.5 mg PO BID 08/03/16 01/01/18 Atorvastatin [Lipitor] 20 mg PO HS 08/03/16 01/01/18 Isosorbide Mononitrate ER [Imdur] 60 mg PO DAILY 08/03/16 01/01/18 Metoprolol Succinate [Toprol XL] 25 mg PO BID 08/03/16 01/01/18 Montelukast [Singulair] 10 mg PO HS 08/03/16 01/01/18 Albuterol Inhaler (Mhu) [Ventolin 3 puff INHALATION RT-BID PRN 12/21/17 01/01/18 Hfa Inhaler] Insulin Lispro Protamin/Lispro 12 unit SQ PC-SUPPER 12/21/17 01/01/18 [humaLOG Mix 75-25 Kwikpen] L.acidoph,Paracasei, B.lactis 1 cap PO DAILY 12/21/17 01/01/18 [Probiotic] Pioglitazone [Actos] 30 mg PO HS 12/21/17 01/01/18 amLODIPine BESYLATE/BENAZEPRIL 1 cap PO DAILY 12/21/17 01/01/18 [Lotrel 5-20 mg Capsule] Previous Rx's Medication Instructions Recorded Apixaban [Eliquis] 2.5 mg PO BID #60 tab 01/02/18 Hydrocodone/Acetaminophen [[place] 1 - 2 each PO Q6HR PRN #40 tab 01/02/18 7-907] Allergies Allergy/AdvReac Type Severity Reaction Status Date / Time No Known Allergies Allergy Verified 02/18/21 17:52 Review of Systems ROS Statement: Those systems with pertinent positive or pertinent negative responses have been documented in the HPI. ROS Other: All systems not noted in ROS Statement are negative. Past Medical History Past Medical History: Asthma, Diabetes Mellitus, Hyperlipidemia, Hypertension, Myocardial Infarction ([place]) Additional Past Medical History / Comment(s): L shoulder pain. Finished steroid therapy 2 weeks ago for an asthma attack. Last Myocardial Infarction Date:: 2007 History of Any Multi-Drug Resistant Organisms: None Reported Past Surgical History: Back Surgery, Heart Catheterization With Stent, Hysterectomy Additional Past Surgical History / Comment(s): Neck surgery Past Anesthesia/Blood Transfusion Reactions: No Reported Reaction Additional Past Anesthesia/Blood Transfusion Reaction / Comment(s): States she has very small veins and would like to request the Anesthesiologist to start her IV. Date of Last Stent Placement:: 2007 Past Psychological History: No Psychological Hx Reported Smoking Status: Never smoker Past Alcohol Use History: Occasional Past Drug Use History: None Reported - Past Family History Father Family Medical History: Cancer Additional Family Medical History / Comment(s): Lung Sister(s) Family Medical History: Pulmonary Embolus General Exam Limitations: altered mental status General appearance: alert, in distress Head exam: Present: atraumatic, normocephalic Eye exam: Present: normal appearance, PERRL ENT exam: Present: normal exam Neck exam: Present: normal inspection. Absent: tenderness, meningismus Respiratory exam: Present: normal lung sounds bilaterally. Absent: respiratory distress, wheezes Cardiovascular Exam: Present: regular rate, irregular rhythm GI/Abdominal exam: Present: soft. Absent: distended, tenderness, guarding, rebound Extremities exam: Present: normal inspection, normal capillary refill. Absent: pedal edema, calf tenderness Neurological exam: Present: alert, other (Patient has an NIH of 3. She is confused. She has word finding difficulty and expressive aphasia. She has no limb weakness.). Absent: oriented X3 Psychiatric exam: Present: anxious Skin exam: Present: warm, dry, intact. Absent: cyanosis, diaphoretic Course Vital Signs 02/18/21 02/18/21 02/18/21 17:48 17:53 18:00 Temperature 98.1 F Pulse Rate 87 77 73 Respiratory 18 18 18 Rate Blood Pressure 155/97 124/60 192/68 O2 Sat by Pulse 97 98 95 Oximetry 02/18/21 02/18/21 02/18/21 18:15 18:30 19:40 Temperature 98.1 F 98.2 F 98.1 F Pulse Rate 74 73 72 Respiratory 16 16 18 Rate Blood Pressure 194/71 192/82 162/102 O2 Sat by Pulse 95 95 90 L Oximetry 02/18/21 20:00 Temperature 98.4 F Pulse Rate 74 Respiratory 18 Rate Blood Pressure 189/62 O2 Sat by Pulse 93 L Oximetry - Reevaluation(s) Reevaluation #1: 02/18/21 18:[address] Kruse on the stroke robot. He does recommend TPA for expressive aphasia. Reevaluation #2: 02/18/21 18:53 Patient did have some initial improvement however then she did develop severe expressive aphasia. She will be administered tPA. EKG Findings - EKG Comments: EKG Findings:: EKG: Atrial fibrillation, left axis, rate 77, [place] interval 88, QRS duration [address] segment elevation. Medical Decision Making - Medical Decision Making 81 -year-old female who presented for evaluation of expressive aphasia. Patient did have some waxing and waning of her symptoms however ultimately it was decided at approximately 60 minutes in the emergency department that she would be a candidate for TPA. Her CT and CT angiography was negative. She was placed on a Cardene for blood pressure management and administer TPA. Dr. Kruse had evaluated the patient on the stroke robot. There was an indication of the medical record that the patient may have previously been anticoagulated but she is not currently on any anticoagulation medication. Patient had normal CBC, normal CMP. Patient evaluated by Dr. Chance in the emergency department covering for neurology. She will be admitted to the ICU for close monitoring - Lab Data Result diagrams: 02/18/21 18:01 02/18/21 18:01 Lab Results 02/18/21 02/18/21 02/18/21 Range/Units 17:54 18:01 18:01 WBC 6.6 (3.8-10.6) k/uL RBC 4.08 (3.80-5.40) m/uL Hgb 13.0 (11.4-16.0) gm/dL Hct 38.4 (34.0-46.0) % MCV 94.2 (80.0-100.0) fL MCH 31.9 (25.0-35.0) pg MCHC 33.8 (31.0-37.0) g/dL RDW 13.5 (11.5-15.5) % Plt Count 241 (150-450) k/uL MPV 7.2 Neutrophils % 49 % Lymphocytes % 38 % Monocytes % 7 % Eosinophils % 4 % Basophils % 0 % Neutrophils # 3.3 (1.3-7.7) k/uL Lymphocytes # 2.5 (1.0-4.8) k/uL Monocytes # 0.4 (0-1.0) k/uL Eosinophils # 0.2 (0-0.7) k/uL Basophils # 0.0 (0-0.2) k/uL PT 11.2 (9.0-12.0) sec INR 1.1 (<1.2) APTT 23.8 (22.0-30.0) sec Sodium (137-145) mmol/L Potassium (3.5-5.1) mmol/L Chloride (98-107) mmol/L Carbon Dioxide (22-30) mmol/L Anion Gap mmol/L BUN (7-17) mg/dL Creatinine (0.52-1.04) mg/dL Est GFR (CKD-EPI)AfAm (>60 ml/min/1.73 sqM) Est GFR (CKD-EPI)NonAf (>60 ml/min/1.73 sqM) Glucose (74-99) mg/dL POC Glucose (mg/dL) 109 H (75-99) mg/dL POC Glu Direct Care Professional ID Virginia Mcneal Calcium (8.4-10.2) mg/dL Total Bilirubin (0.2-1.3) mg/dL AST (14-36) U/L ALT (4-34) U/L Alkaline Phosphatase (38-126) U/L Troponin I (0.000-0.034) ng/mL Total Protein (6.3-8.2) g/dL Albumin (3.5-5.0) g/dL 02/18/21 02/18/21 Range/Units 18:01 18:01 WBC (3.8-10.6) k/uL RBC (3.80-5.40) m/uL Hgb (11.4-16.0) gm/dL Hct (34.0-46.0) % MCV (80.0-100.0) fL MCH (25.0-35.0) pg MCHC (31.0-37.0) g/dL RDW (11.5-15.5) % Plt Count (150-450) k/uL MPV Neutrophils % % Lymphocytes % % Monocytes % % Eosinophils % % Basophils % % Neutrophils # (1.3-7.7) k/uL Lymphocytes # (1.0-4.8) k/uL Monocytes # (0-1.0) k/uL Eosinophils # (0-0.7) k/uL Basophils # (0-0.2) k/uL PT (9.0-12.0) sec INR (<1.2) APTT (22.0-30.0) sec Sodium 139 (137-145) mmol/L Potassium 4.2 (3.5-5.1) mmol/L Chloride 107 (98-107) mmol/L Carbon Dioxide 19 L (22-30) mmol/L Anion Gap 13 mmol/L BUN 18 H (7-17) mg/dL Creatinine 0.74 (0.52-1.04) mg/dL Est GFR (CKD-EPI)AfAm 88 (>60 ml/min/1.73 sqM) Est GFR (CKD-EPI)NonAf 76 (>60 ml/min/1.73 sqM) Glucose 125 H (74-99) mg/dL POC Glucose (mg/dL) (75-99) mg/dL POC Glu Direct Care Professional ID Calcium 9.8 (8.4-10.2) mg/dL Total Bilirubin 0.8 (0.2-1.3) mg/dL AST 31 (14-36) U/L ALT 16 (4-34) U/L Alkaline Phosphatase 117 (38-126) U/L Troponin I <0.012 (0.000-0.034) ng/mL Total Protein 7.5 (6.3-8.2) g/dL Albumin 4.4 (3.5-5.0) g/dL Critical Care Time Critical Care Time: Yes Total Critical Care Time: 35 Disposition Clinical Impression: Cerebrovascular accident (CVA) Disposition: ADMITTED IP TO THIS HOSP Condition: Serious Is patient prescribed a controlled substance at d/c from ED?: No Referrals: None,Stated [REFERRING] - 1-2 days Decision to Admit Reason: Admit from EC Decision Date: 02/18/21 Decision Time: 20:20
[2021-02-18 17:58] LABS: Glucose,Whole Blood 109 mg/dL (75-99)
[2021-02-18 18:08] LABS: Basophils % (A) 0 %; Eosinophils # (A) 0.2 k/uL (0-0.7); Eosinophils % (A) 4 %; HCT 38.4 % (34.0-46.0); Lymphocytes # (A) 2.5 k/uL (1.0-4.8); Lymphocytes % (A) 38 %; MCH 31.9 pg (25.0-35.0); MCHC 33.8 g/dL (31.0-37.0); MCV 94.2 fL (80.0-100.0); Mean Platelet Volume 7.2; Monocytes # (A) 0.4 k/uL (0-1.0); Monocytes % (A) 7 %; Neutrophils # (A) 3.3 k/uL (1.3-7.7); Neutrophils % (A) 49 %; Platelet Count 241 k/uL (150-450); RBC 4.08 m/uL (3.80-5.40); RDW 13.5 % (11.5-15.5); WBC 6.6 k/uL (3.8-10.6)
--- NOTE | 2021-02-18 18:12 | CT ---
EXAMINATION TYPE: CT brain wo con for TPA DATE OF EXAM: 02/18/2021 COMPARISON: None HISTORY: Neuro deficits, stroke suspected CT DLP: 1132.[address] of the brain was performed. The ventricles, basal cisterns and sulci overlying the cerebral convexities demonstrate mild enlargem ent. Remote insult small in size of posterior right temporal parietal region. Additional lacunar infa rcts involving the right external capsule. Basal ganglia calcifications noted. There is no evidence for intracranial hemorrhage or sulcal effacement. There is decreased attenuation about the periventricular white matter and deep white matter of both c erebral hemispheres, compatible with chronic small vessel ischemia. Differential diagnosis does inclu de demyelination. No mass effects are seen.No midline shift. Osseous calvarium is intact. If symptoms persist consider MRI. IMPRESSION: 1. Age related atrophic and chronic small vessel ischemic change without acute intracranial process s een at this time.
[2021-02-18 18:19] LABS: INR 1.1 (<1.2); Partial Thromboplastin Time 23.8 sec (22.0-30.0); Prothrombin Time 11.2 sec (9.0-12.0)
[2021-02-18 18:32] LABS: Albumin 4.4 g/dL (3.5-5.0); Calcium 9.8 mg/dL (8.4-10.2); Potassium 4.2 mmol/L (3.5-5.1); Total Bilirubin 0.8 mg/dL (0.2-1.3); Total Protein 7.5 g/dL (6.3-8.2)
--- NOTE | 2021-02-18 18:38 | CT ---
EXAMINATION TYPE: CT angio head neck DATE OF EXAM: 02/18/2021 COMPARISON: None HISTORY: Neuro deficits, expressive aphasia CT DLP: 451.5 mGycm CONTRAST: Performed with IV Contrast, patient injected with 65 mL of Isovue 370. Combination Contrast CTA cervical carotids and [place] CTA cervical carotids with 3-D recons truction Contrast CTA of the cervical carotids was performed 3-D reconstruction imaging obtained at a separate workstation. Right carotid system: Mild plaque is seen of the right common carotid artery. There is mild plaque a lso noted at the carotid bulb and proximal ICA. No significant diameter reduction. ECA is patent. Right vertebral artery appears unremarkable. Left carotid system: Mild plaque is seen of the left common carotid artery. There is mild plaque als o noted at the carotid bulb and proximal ICA. No significant diameter reduction. ECA is patent. Lef t vertebral artery appears unremarkable. IMPRESSION: 1. No significant diameter reduction to account for the patient's symptoms. CTA [place] with 3-D reconstruction Contrast CTA of the [place] was performed 3-D reconstruction imaging obtained at a separate workstation. Vertebrobasilar system as well as intracranial portions of the internal carotid arteries and their ma [place] tributaries are patent. I do not see evidence for sizable aneurysm or vascular malformation. Pl ease note MRI provides greater sensitivity and specificity. Visualized brain appears grossly unremar kable. IMPRESSION: 1. No significant abnormality. NASCET criteria was used in interpretation of this exam?
[2021-02-18] MEDS ORDERED: ALTEPLASE 53 MG in EMPTY BAG 1 BAG IV STA (18:46)
[2021-02-18] MEDS ORDERED: ALTEPLASE BOLUS FOR STROKE 6 MG in EMPTY SYRINGE 1 SYR IV STA (18:46)
[2021-02-18] MEDS: niCARdipine 20 MG in SODIUM CHLORIDE 0.9% 192 ML IV SCH (18:58)
[2021-02-18] MEDS ORDERED: SODIUM CHLORIDE 0.9% 50 ML MINI-BAG IV ONE ×2 (19:46→21:17)
--- NOTE | 2021-02-18 19:54 | CT ---
EXAMINATION TYPE: CT brain wo con DATE OF EXAM: 02/18/2021 COMPARISON: Today HISTORY: FREY CT DLP: 1143.4 mGycm Automated exposure control for dose reduction was used. There is some cerebral cortical atrophy. There is 4 x 3 cm area of hypodensity in the right posterior temporal lobe. There is no mass effect. There is no midline shift. There is no sign of intracranial hemorrhage. Calvarium is intact. 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
[2021-02-18] MEDS ORDERED: ACETAMINOPHEN TAB 325 MG TAB PO PRN (20:16)
--- NOTE | 2021-02-18 20:34 | P.CNNES ---
History of Present Illness Consult date: 02/18/21 Requesting physician: Luke Abreu Reason for Consult: Acute stroke, status post TPA History of Present Illness: Patient is a 81-year-old right-handed female with history of coronary artery disease, diabetes, hypertension, otherwise very healthy was brought to the hospital by ambulance at 5:45 PM for probable acute stroke. Patient was at a laundromat with her , when he showed her some magazine and patient would not respond. The symptoms started at 4:20 PM. When she started speaking, she was slurring her words, not talking. When her asked the home address, she did not know, could not answer any questions. EMS was called, and when they arrived, patient was aphasic. She would not follow commands, as she would not raise her hands on either side. There was no facial droop. Patient's vitals on arrival blood pressure 155/97, pulse rate 87, temperature 98.1. CT head showed age-related atrophic and chronic small vessel ischemic change, without acute intracranial process. CTA of head showed no significant abnormality. CTA of the neck showed no significant diameter reduction to account for the patient's symptoms. EKG shows atrial fibrillation with left axis deviation. Patient was evaluated by ED staff and discussed with neurologist . Patient was considered a candidate for TPA. The bolus dose of TPA was given at 7:11 PM. Patient has history of hypertension, diabetes for 20 years. Patient does not take any antiplatelets or anticoagulants at home. She does have history of coronary artery disease, [place] times twice and also has cardiac stents. She used to take Eliquis but she was recommended to stop Eliquis long time ago. Not on antiplatelet medication. No previous history of strokes or TIA. Patient does use marijuana as needed, as it calms her down. Patient is very active, plays tennis with her . Patient was a light smoker in the past, quit long time ago. After TPA was initiated, patient complaining of severe headache and vomiting. Another computed tomography scan of the head was performed, which showed no intracranial bleed. TPA was resumed. Patient is currently receiving TPA. Review of Systems Complains of headache and nausea. Appears somewhat miserable. Rest of the review of systems cannot be assessed because of expressive aphasia. Past Medical History Past Medical History: Asthma, Diabetes Mellitus, Hyperlipidemia, Hypertension, Myocardial Infarction ([place]) Additional Past Medical History / Comment(s): L shoulder pain. Finished steroid therapy 2 weeks ago for an asthma attack. Last Myocardial Infarction Date:: 2007 History of Any Multi-Drug Resistant Organisms: None Reported Past Surgical History: Back Surgery, Heart Catheterization With Stent, Hystere ctomy Additional Past Surgical History / Comment(s): Neck surgery Past Anesthesia/Blood Transfusion Reactions: No Reported Reaction Additional Past Anesthesia/Blood Transfusion Reaction / Comment(s): States she has very small veins and would like to request the Anesthesiologist to start her IV. Date of Last Stent Placement:: 2007 Past Psychological History: No Psychological Hx Reported Smoking Status: Never smoker Past Alcohol Use History: Occasional Past Drug Use History: None Reported - Past Family History Father Family Medical History: Cancer Additional Family Medical History / Comment(s): Lung Sister(s) Family Medical History: Pulmonary Embolus Medications and Allergies Home Medications Medication Instructions Recorded Confirmed Type ALPRAZolam [Xanax] 0.5 mg PO BID 08/03/16 01/01/18 History Atorvastatin [Lipitor] 20 mg PO HS 08/03/16 01/01/18 History Isosorbide Mononitrate ER [Imdur] 60 mg PO DAILY 08/03/16 01/01/18 History Metoprolol Succinate [Toprol XL] 25 mg PO BID 08/03/16 01/01/18 History Montelukast [Singulair] 10 mg PO HS 08/03/16 01/01/18 History Pioglitazone [Actos] 30 mg PO HS 12/21/17 01/01/18 History amLODIPine BESYLATE/BENAZEPRIL 1 cap PO DAILY 02/18/21 02/18/21 History [Lotrel 10-40 MG] Allergies Allergy/AdvReac Type Severity Reaction Status Date / Time No Known Allergies Allergy Verified 02/18/21 20:24 Physical Examination - Vital Signs Vital Signs: Vital Signs Temp Pulse Resp BP Pulse Ox 02/18/21 19:40 98.1 F 72 18 162/102 90 L 02/18/21 18:30 98.2 F 73 16 192/82 95 02/18/21 18:15 98.1 F 74 16 194/71 95 02/18/21 18:00 98.1 F 73 18 192/68 95 02/18/21 17:53 77 18 124/60 98 02/18/21 17:48 87 18 155/97 97 Intake and Output 02/18/21 02/18/21 02/18/21 06:59 14:59 22:59 Intake Total 15.833 Balance 15.833 Intake: Intake, IV Titration 15.833 Amount niCARdipine 20 mg In 15.833 Sodium Chloride 0.9% 192 ml @ 5 MG/HR 50 mls/hr IV .Q4H [facility] Rx#:[id number] Other: Weight 65.363 kg Patient is an elderly female, who appears to be in distress because of headache, and feels will vomit. Patient is alert awake. Patient has significant expressive aphasia. Cannot name or repeat. Patient does follow commands quite well. Attention, concentration is decreased and fund of knowledge cannot be assessed. On cranial examination, pupils are round and reacting to light, visual menard are full on confrontation, with no neglect on double simultaneous stimulation. Her extraocular muscles are intact with no nystagmus. Face is symmetric, tongue protrudes to the midline. Palatal elevation and sensation normal, hearing and shoulder shrug normal, facial sensation could not be tested. On muscle strength testing, there is no pronator drift. Patient was holding both arms in the air and did not drop it down on either side. Likewise she was able to lift her legs off the bed without much difficulty and held it up. Deep tendon reflexes are 1+ and plantars are downgoing. Sensory to touch could not be tested reliably because agent started having headaches. Cerebellar function could not be tested, because patient started having headaches and would not cooperate with exam. Tone and bulk of muscles normal. Gait not checked. On general examination, there is no carotid bruit or murmur, S1-S2 audible. Abdomen is soft nontender. Chest is clear. Peripheral pulses are present. No edema. Patient has a bruise over the right forearm. Results - Laboratory Findings CBC and BMP: 02/18/21 18:01 02/18/21 18:01 Abnormal Lab Findings: Abnormal Labs 02/18/21 02/18/21 17:54 18:01 Carbon Dioxide 19 L BUN 18 H Glucose 125 H POC Glucose (mg/dL) 109 H Assessment and Plan Assessment: * Probable acute ischemic stroke, manifesting with expressive aphasia. Her current NIH stroke scale is 4, (2 for not able to tell the month or age, 2 for moderate expressive aphasia). * New onset atrial fibrillation * Hypertension * Diabetes * Coronary artery disease, history of cardiac stenting. * Marijuana use. Plan: * Patient is receiving tPA due to severe expressive aphasia. Admit to ICU. * Repeat computed tomography scan of head performed during TPA infusion for headache was negative for any ICB. * Continue neuro checks every 15 minutes and then follow per protocol. * CTA of head and neck showed no significant stenosis. * No anticoagulants or antiplatelets for 24 hours post-TPA. * Keep blood pressure <180 systolic. Most current blood pressure 179 systolic. * Hemoglobin A1c 6.1, well controlled. * CT head 24 hours post-TPA rule out intracranial bleed. * Lipid panel with cholesterol 126, LDL 55, HDL 50 and triglycerides 103. Co ntinue Lipitor 20 mg. * DVT prophylaxis, consider SCDs. * Dr. Kobe Ramey Will resume neurology service from the morning. * Thank you for the consult. Time with Patient: Greater than 30
[2021-02-18] MEDS ORDERED: ONDANSETRON 4 MG/2 ML VIAL IVP STA (20:55)
[2021-02-18] MEDS: SODIUM CHLORIDE 0.9% 1,000 ML IV SCH (21:13)
[2021-02-19] MEDS: niCARdipine 20 MG in SODIUM CHLORIDE 0.9% 192 ML IV SCH ×6 (02:26→18:14)
[2021-02-19] MEDS: SODIUM CHLORIDE 0.9% 1,000 ML IV SCH (08:33)
[2021-02-19 09:10] LABS: Chol/HDL Ratio 2.31 Ratio; LDL Cholesterol,Calculated 54.8 mg/dL (0.0-131.0)
--- NOTE | 2021-02-19 11:14 | P.PN ---
Subjective Progress Note Date: 02/19/21 I am seeing the patient for the first time for neurological management. Please refer to Dr. Chance's for further details. Patient is accompanied by her , son and [id number] and per her family members her speech is improving but not back to baseline. Patient denies any headaches or any further new neurological problems. Objective - Vital Signs Vital signs: Vital Signs Temp 99.2 F 02/19/21 08:33 Pulse 65 02/19/21 09:00 Resp 21 02/19/21 09:00 BP 131/54 02/19/21 09:00 Pulse Ox 94 L 02/19/21 09:00 Intake & Output 02/18/21 02/19/21 02/19/21 18:59 06:59 18:59 Intake Total 194.166 183.75 Balance 194.166 183.75 Weight 65.363 kg Intake: Intake, IV Titration 194.166 183.75 Amount niCARdipine 20 mg In 194.166 183.75 Sodium Chloride 0.9% 192 ml @ 5 MG/HR 50 mls/hr IV .Q4H COUNTS INCLUDE 234 BEDS AT THE [facility] Rx#:[id number] Other: # Voids 2 # Bowel Movements 3 - Exam GENERAL: The patient is lying in bed and is not in acute distress. NEUROLOGICAL: Higher mental function: The patient is awake, alert, oriented to self, time. She stated she was in the hospital. She is slow to respond. She is following simple commands. And having some word finding difficulties. No paraphrasic errors. She has expressive aphasia. No neglect. . Cranial nerves: The pupils are round, equal and reactive to ligh. Visual menard are full to confrontation throughout. Extraocular movement is intact no nystagmus is noted. Facial sensation is normal to touch throughout. The facial strength is normal throughout. Tongue is midline and moved [id number] without any difficulty. No dysarthria is noted. Motor: Gait is deferred. The strength is right forearm extension is 4+ (per family her right upper extremity was weaker yesterday). Otherwise 5 over 5 throughout. Normal tone and bulk. Cerebellum: Normal finger to nose bilaterally. Sensation: Sensation is normal to touch throughout. Plantars are downgoing bilaterally. WORK-UP: Initial CT of the head is reported as age-related atrophy and chronic small vessel ischemic change without acute intracranial process seen at this time. Last CT of the head on 02/18/2021 is reported as old right posterior temporal lobe infarct without change compared to exam 2 hours ago. I personally reviewed the CT of the head and compared to the earlier one and I felt the patient had an old hypodensity over the right temporal occipital region CT angiography of the head and neck is reported as negative Lipid panel is triglyceride of 55, cholesterol is 116, LDLs 54 and HDL is 50. - Labs CBC & Chem 7: 02/18/21 18:01 02/18/21 18:01 Labs: Abnormal Lab Results - Last 24 Hours (Table) 02/18/21 02/18/21 Range/Units 17:54 18:01 Carbon Dioxide 19 L (22-30) mmol/L BUN 18 H (7-17) mg/dL Glucose 125 H (74-99) mg/dL POC Glucose (mg/dL) 109 H (75-99) mg/dL Assessment and Plan Assessment: * Acute ischemic stroke, manifesting with expressive aphasia and right upper extremity weakness s/p IV tpa * Appears old stroke on CT head over right occipital/temporal region. * New onset atrial fibrillation * Hypertension * Diabetes * Coronary artery disease, history of cardiac stenting. * Marijuana use. Plan: * I ordered MRI the brain since there is no MRI techs available likely tomorrow evaluated the patient had that any acute or subacute ischemic stroke seen on MRI. * Patient has a repeat CT of the head for later today and in the evening post 24 hours TPA. If negative for bleed then we'll start the patient on the initial loading dose of aspirin 325mg then the maintenance dose of aspirin 81mg daily and Plavix 75 mg daily. We'll consider starting the patient anticoagulation down the line for her new onset atrial fibrillation. It is reported the patient is to continue on the Lipitor 20 mg daily but I do not see Lipitor order * Keep the systolic blood pressure less than 180 per TPA protocol and diastolic blood pressure less than 110. * Continue neuro checks for IV TPA protocol * 2-D echo was ordered and is pending * On cardiac monitoring. * PT, OT and FINANCE ADVISOR are consulted * We'll defer the rest of the medical management to the primary and ICU team. * For DVT prophylaxis: SCD (if repeat [address] head negative for bleed recommend subq heparin 5000U every 12 hours). The plan is discussed with the patient's as well as her family members and all questions are answered. Kobe Ramey MD Neuro-Hospitalist Time with Patient: Less than 30
--- NOTE | 2021-02-19 13:46 | XR ---
EXAMINATION TYPE: XR chest 2V DATE OF EXAM: 02/19/2021 COMPARISON: 07/02/2017 HISTORY: Shortness of breath TECHNIQUE: Frontal and lateral views of the chest are obtained. FINDINGS: Scattered senescent parenchymal changes noted. Hyperinflation compatible with COPD. Pulmonary venous congestion with cardiomegaly and small effusions and lateral with congestive failure . Mediastinal structures are stable and grossly unremarkable. No evidence for hilar prominence. Degenerative changes dorsal spine. IMPRESSION: 1. Mild CHF
--- NOTE | 2021-02-19 14:01 | ECHOF ---
Referral Reason:CVA MEASUREMENTS -------- HEIGHT: 152.4 cm WEIGHT: 65.3 kg BP: 132/54 RVIDd: 2.8 cm (< 3.3) IVSd: 1.7 cm (0.6 - 1.1) LVIDd: 4.2 cm (3.9 - 5.3) LVPWd: 1.5 cm (0.6 - 1.1) IVSs: 2.0 cm LVIDs: 1.9 cm LVPWs: 1.7 cm LA Diam: 4.5 cm (2.7 - 3.8) Ao Diam: 2.6 cm (2.0 - 3.7) AV Cusp: 1.9 cm (1.5 - 2.6) LA Diam: 4.4 cm (2.7 - 3.8) MV EXCURSION: 17.297 mm (> 18.000) MV EF SLOPE: 127 mm/s (70 - 150) EPSS: 0.2 cm MV E Harry: 1.43 m/s MV DecT: 104 ms MV A Harry: 0.50 m/s MV E/A Ratio: 2.83 RAP: 5.00 mmHg RVSP: 79.20 mmHg FINDINGS -------- This was a technically adequate study. The left ventricular size is normal. There is severe concentric left ventricular hypertrophy. Ove rall left ventricular systolic function is normal with, an EF between 55 - 60 %. The right ventricle is normal in size. The left atrium is moderately dilated. The right atrium is mildly enlarged. Interatrial and interventricular septum intact. There is no evidence of aortic regurgitation. There is no evidence of aortic stenosis. Mild mitral regurgitation is present. Severe tricuspid regurgitation present. There is severe pulmonary hypertension. The right ventric ular systolic pressure, as measured by Doppler, is 79.20mmHg. Trace/mild (physiologic) pulmonic regurgitation. The aortic root size is normal. IVC Not well visulized. There is a small, generalized pericardial effusion present. CONCLUSIONS -------- 1. The left ventricular size is normal. 2. There is severe concentric left ventricular hypertrophy. 3. Overall left ventricular systolic function is normal with, an EF between 55 - 60 %. 4. The left atrium is moderately dilated. 5. The right atrium is mildly enlarged. 6. Mild mitral regurgitation is present. 7. Severe tricuspid regurgitation present. 8. There is severe pulmonary hypertension. 9. The right ventricular systolic pressure, as measured by Doppler, is 79.20mmHg. 10. Trace/mild (physiologic) pulmonic regurgitation. 11. There is a small, generalized pericardial effusion present. MICRO PALEONTOLOGIST: Kiana Michaels RDCS
--- NOTE | 2021-02-19 14:39 | P.HPIM ---
History of Present Illness 81-year-old pleasant female came in the with the dysphagia and foreign to have an NIH stroke score of around 4 patient qualified for TPA, patient received TPA and is being being monitored at this time patient also has new-onset atrial fibrillation but rate controlled at this time. Patient had an echo which showed normal ejection fraction but the showed severe pulmonary hypertension. Patient is clinically doing well but requiring oxygen because of which obtain x-ray which showed bilateral pulmonary edema because of which I'm giving her Lasix. Patient's speech abnormality this resolved. REVIEW OF SYSTEMS: CONSTITUTIONAL: No fever, no malaise, no fatigue. HEENT: No recent visual problems or hearing problems. Denied any sore throat. CARDIOVASCULAR: No chest pain, orthopnea, PND, no palpitations, no syncope. PULMONARY: No shortness of breath, no cough, no hemoptysis. GASTROINTESTINAL: No diarrhea, no nausea, no vomiting, no abdominal pain. NEUROLOGICAL: As mentioned in 12 history HEMATOLOGICAL: Denies any bleeding or petechiae. GENITOURINARY: Denies any burning micturition, frequency, or urgency. MUSCULOSKELETAL/RHEUMATOLOGICAL: Denies any joint pain, swelling, or any muscle pain. ENDOCRINE: Denies any polyuria or polydipsia. The rest of the 14-point review of systems is negative. PHYSICAL EXAMINATION: GENERAL: The patient is alert and oriented x3, not in any acute distress. Well developed, well nourished. HEENT: Pupils are round and equally reacting to light. EOMI. No scleral icterus. No conjunctival pallor. Normocephalic, atraumatic. No pharyngeal erythema. No thyromegaly. CARDIOVASCULAR: S1 and S2 present. No murmurs, rubs, or gallops. PULMONARY: Chest is clear to auscultation, no wheezing or crackles. ABDOMEN: Soft, nontender, nondistended, normoactive bowel sounds. No palpable organomegaly. MUSCULOSKELETAL: No joint swelling or deformity. EXTREMITIES: No cyanosis, clubbing, or pedal edema. NEUROLOGICAL: Gross neurological examination did not reveal any focal deficits. SKIN: Some bruises in both arms Assessment and plan -Cerebrovascular accident the patient had aphasia with improvement after TPA. -New-onset atrial ablation presently rate controlled patient just received TPA because of which she cannot started on anticoagulation will discuss with neurology regarding the appropriate timing of initiation of anticoagulation. Antiplatelet therapy as neurology. MRI is pending -Hypertension next and-type 2 diabetes mellitus -Coronary artery disease with stents in the past next line-asthma without any acute exacerbation DVT prophylaxis: Holding pharmacologic prophylaxis because of her recent TPA Past Medical History Past Medical History: Asthma, Diabetes Mellitus, Hyperlipidemia, Hypertension, Myocardial Infarction (OR) Additional Past Medical History / Comment(s): L shoulder pain. Finished steroid therapy 2 weeks ago for an asthma attack. Last Myocardial Infarction Date:: 2007 History of Any Multi-Drug Resistant Organisms: None Reported Past Surgical History: Back Surgery, Heart Catheterization With Stent, Hy sterectomy Additional Past Surgical History / Comment(s): Neck surgery Past Anesthesia/Blood Transfusion Reactions: No Reported Reaction Additional Past Anesthesia/Blood Transfusion Reaction / Comment(s): States she has very small veins and would like to request the Anesthesiologist to start her IV. Date of Last Stent Placement:: 2007 Past Psychological History: No Psychological Hx Reported Smoking Status: Never smoker Past Alcohol Use History: Occasional Past Drug Use History: None Reported - Past Family History Father Family Medical History: Cancer Additional Family Medical History / Comment(s): Lung Sister(s) Family Medical History: Pulmonary Embolus Medications and Allergies Home Medications Medication Instructions Recorded Confirmed Type ALPRAZolam [Xanax] 0.5 mg PO BID 08/03/16 02/18/21 History Atorvastatin [Lipitor] 20 mg PO HS 08/03/16 02/18/21 History Isosorbide Mononitrate ER [Imdur] 60 mg PO DAILY 08/03/16 02/18/21 History Metoprolol Succinate [Toprol XL] 25 mg PO BID 08/03/16 02/18/21 History Montelukast [Singulair] 10 mg PO HS 08/03/16 02/18/21 History Pioglitazone [Actos] 30 mg PO HS 12/21/17 02/18/21 History amLODIPine BESYLATE/BENAZEPRIL 1 cap PO DAILY 02/18/21 02/18/21 History [Lotrel 10-40 MG] Allergies Allergy/AdvReac Type Severity Reaction Status Date / Time No Known Allergies Allergy Verified 02/18/21 20:24 Physical Exam Vitals: Vital Signs Temp Pulse Resp BP Pulse Ox 02/19/21 14:05 98.8 F 71 20 154/52 93 L 02/19/21 11:00 98.6 F 77 15 144/85 95 02/19/21 10:00 71 15 143/64 95 02/19/21 09:00 65 21 131/54 94 L 02/19/21 08:33 99.2 F 73 16 131/54 95 02/19/21 06:00 77 16 132/54 95 02/19/21 05:00 67 18 129/54 96 02/19/21 04:00 99.0 F 70 22 121/58 94 L 02/19/21 03:00 76 18 143/53 95 02/19/21 02:00 71 22 122/58 96 02/19/21 01:30 99.8 F H 76 16 141/62 91 L 02/19/21 01:00 99.8 F H 88 16 151/68 91 L 02/19/21 00:30 99.8 F H 87 18 154/68 94 L 02/19/21 00:00 99.4 F 84 16 140/69 92 L 02/18/21 23:30 99.4 F 92 18 152/59 93 L 02/18/21 23:00 99.2 F 79 18 157/57 92 L 02/18/21 22:30 98.9 F 74 18 130/60 92 L 02/18/21 22:00 99 F 88 20 141/59 93 L 02/18/21 21:45 99 F 97 20 159/65 94 L 02/18/21 21:30 98.5 F 80 18 157/68 90 L 02/18/21 21:15 98.8 F 80 18 166/86 93 L 02/18/21 21:00 98.8 F 67 18 191/60 93 L 02/18/21 20:45 98.6 F 84 18 155/92 93 L 02/18/21 20:30 86.6 F L 67 18 176/75 02/18/21 20:15 98.6 F 78 18 180/65 93 L 02/18/21 20:00 99 F 88 18 141/59 92 L 02/18/21 19:40 98.1 F 72 18 162/102 90 L 02/18/21 18:30 98.2 F 73 16 192/82 95 02/18/21 18:15 98.1 F 74 16 194/71 95 02/18/21 18:00 98.1 F 73 18 192/68 95 02/18/21 17:53 77 18 124/60 98 02/18/21 17:48 87 18 155/97 97 Intake and Output 02/18/21 02/19/21 02/19/21 22:59 06:59 14:59 Intake Total 15.833 178.333 183.75 Balance 15.833 178.333 183.75 Intake: Intake, IV Titration 15.833 178.333 183.75 Amount niCARdipine 20 mg In 15.833 178.333 183.75 Sodium Chloride 0.9% 192 ml @ 5 MG/HR 50 mls/hr IV .Q4H [facility] Rx#:[id number] Other: # Voids 5 2 # Bowel Movements 3 Weight 65.363 kg Results CBC & Chem 7: 02/18/21 18:01 02/18/21 18:01 Labs: Abnormal Lab Results - Last 24 Hours (Table) 02/18/21 02/18/21 Range/Units 17:54 18:01 Carbon Dioxide 19 L (22-30) mmol/L BUN 18 H (7-17) mg/dL Glucose 125 H (74-99) mg/dL POC Glucose (mg/dL) 109 H (75-99) mg/dL
[2021-02-19] MEDS ORDERED: FUROSEMIDE 10 MG/ML 2 ML VIAL IV ONE (14:45)
[2021-02-19] MEDS: INSULIN ASPART (NovoLOG) 100 UNIT/ML VIAL SQ SCH ×3 (15:41→21:14)
[2021-02-19 19:24] LABS: Glucose,Whole Blood 96 mg/dL (75-99)
[2021-02-19] MEDS: METOPROLOL SUCCINATE (ER) 25 MG TAB.ER.24H PO SCH (21:22)
[2021-02-19] MEDS: ATORVASTATIN 20 MG TAB PO SCH (21:22)
[2021-02-19] MEDS: ALPRAZolam 0.5 MG TAB PO SCH (21:22)
--- NOTE | 2021-02-19 21:56 | CT ---
EXAMINATION TYPE: CT brain wo con DATE OF EXAM: 02/19/2021 COMPARISON: Yesterday HISTORY: stroke follow up CT DLP: 1070 mGycm Automated exposure control for dose reduction was used. There is poorly marginated 4 cm area of hypodensity in the right posterior temporal lobe grade white matter consistent with infarct. Size is not changed compared to yesterday. There is no midline shift. There is no sign of intracranial hemorrhage. There is cerebral cortical atrophy. Calvarium is intact . IMPRESSION: Subacute right posterior temporal and parietal cortical infarct without progression.
[2021-02-20] MEDS: niCARdipine 20 MG in SODIUM CHLORIDE 0.9% 192 ML IV SCH (00:38)
--- NOTE | 2021-02-20 01:28 | US ---
EXAMINATION TYPE: US venous doppler duplex UE LT DATE OF EXAM: 02/20/2021 COMPARISON: NONE CLINICAL HISTORY: hand swelling. left hand edema. IV left hand SIDE PERFORMED: left Left Arm: no evidence of DVT IMPRESSION: No evidence of deep vein thrombosis in the left arm.
[2021-02-20 06:01] LABS: Glucose,Whole Blood 85 mg/dL (75-99)
[2021-02-20] MEDS: INSULIN ASPART (NovoLOG) 100 UNIT/ML VIAL SQ SCH ×4 (06:04→21:22)
[2021-02-20] MEDS ORDERED: ASPIRIN 325 MG TAB PO STA (08:16)
[2021-02-20] MEDS: ALPRAZolam 0.5 MG TAB PO SCH ×2 (09:34→21:22)
[2021-02-20] MEDS: lisinopriL 20 MG TAB PO SCH (09:35)
[2021-02-20] MEDS: amLODIPine 10 MG TAB PO SCH (09:35)
[2021-02-20] MEDS: HEPARIN SODIUM,PORCINE/PF 5,000 UNIT/0.5 ML SYRINGE SQ SCH ×2 (09:35→21:22)
[2021-02-20] MEDS: METOPROLOL SUCCINATE (ER) 25 MG TAB.ER.24H PO SCH ×2 (09:35→21:22)
[2021-02-20] MEDS: ISOSORBIDE MONONITRATE ER 60 MG TAB.ER.24H PO SCH (09:35)
--- NOTE | 2021-02-20 11:01 | P.PN ---
Subjective Progress Note Date: 02/20/21 The patient is seen at bedside and she is accompanied by her . She feels she is doing drastically better and her speech is drastically improved and she denies of any weakness, numbness, visual disturbance. She denies of any headache. Objective - Vital Signs Vital signs: Vital Signs Temp 98.5 F 02/20/21 08:00 Pulse 76 02/20/21 08:00 Resp 18 02/20/21 08:00 BP 154/79 02/20/21 08:00 Pulse Ox 95 02/20/21 08:00 Intake & Output 02/19/21 02/20/21 02/20/21 18:59 06:59 18:59 Intake Total 383.75 240 Balance 383.75 240 Weight 64 kg Intake: Intake, IV Titration 383.75 Amount niCARdipine 20 mg In 383.75 Sodium Chloride 0.9% 192 ml @ 5 MG/HR 50 mls/hr IV .Q4H [facility] Rx#:[id number] Oral 240 Other: Voiding Method Indwelling Catheter Indwelling Catheter - Exam GENERAL: The patient is lying in bed and is not in acute distress. NEUROLOGICAL: Higher mental function: The patient is awake, alert, oriented to self, place and time. She is following simple commands. No aphasia or No neglect. . Cranial nerves: The pupils are round, equal and reactive to light. Visual menadr are full to confrontation throughout. Extraocular movement is intact no nystagmus is noted. Facial sensation is normal to touch throughout. The facial strength is normal throughout. Tongue is midline and moved [id number] without any difficulty. No dysarthria is noted. Motor: Gait is deferred. The strength is moving all extremities above gravity and no appreciable focal deficits. Normal tone and bulk. Cerebellum: Normal finger to nose bilaterally. Sensation: Sensation is normal to touch throughout. Plantars are downgoing bilaterally. WORK-UP: HbA1c: 6.1 (02/17/2021). No need for repeat. Initial CT of the head is reported as age-related atrophy and chronic small ve ssel ischemic change without acute intracranial process seen at this time. CT of the head on 02/18/2021 is reported as old right posterior temporal lobe infarct without change compared to exam 2 hours ago. I personally reviewed the CT of the head and compared to the earlier one and I felt the patient had an old hypodensity over the right temporal occipital region CT angiography of the head and neck is reported as negative CT head on 02/19/2021: Is reported as subacute right posterior temporal parietal cortical infarct without progression. Personally reviewed it and the patient had hypodensity over the right temporal occipital region on the initial presentation. Lipid panel is triglyceride of 55, cholesterol is 116, LDLs 54 and HDL is 50. 2-D echo was reported as severe concentric left ventricle hypertrophy. Ejection fraction of 55-60%. Left atrium is mildly dilated that. Severe tricuspid regurgitation present. - Labs CBC & Chem 7: 02/18/21 18:01 02/18/21 18:01 Assessment and Plan Assessment: * Acute ischemic stroke, manifesting with expressive aphasia and right upper extremity weakness s/p IV tpa---symptoms improved (post IV tpa) * Appears old stroke on CT head over right occipital/temporal region. * New onset atrial fibrillation * Hypertension * Diabetes * Coronary artery disease, history of cardiac stenting. * Marijuana use. Plan: * * Pending MRI the brain. * Started the patient on initial loading dose of aspirin 325mg then the maintenance dose of aspirin 81mg daily and Plavix 75 mg daily. We'll consider starting the patient anticoagulation down the line for her new onset atrial fibrillation but will wait until MRI Brain then will give recommendation of approximate start date. Continue Lipitor 20 mg qhs. * Continue neuro-checks. * Ordered TSH. * On cardiac monitoring. * PT, OT and [employer] are consulted * Cardiology is on board. * We'll defer the rest of the medical management to the primary team. * For DVT prophylaxis: Started on subq heparin 5000U every 12 hours. * Upon discharge, the patient to follow-up with a neurologist within 1-2 weeks as outpatient. The plan is discussed with the patient's as well as her who is at bedside. Kobe Ramey MD Neuro-Hospitalist Time with Patient: Less than 30
[2021-02-20 11:36] LABS: Glucose,Whole Blood 113 mg/dL (75-99)
[2021-02-20 12:10] LABS: African American GFR (CKD) >90 (>60 ml/min/1.73 sqM); Anion Gap 7 mmol/L; Blood Urea Nitrogen 12 mg/dL (7-17); Calcium 8.8 mg/dL (8.4-10.2); Carbon Dioxide 24 mmol/L (22-30); Chloride 105 mmol/L (98-107); Glucose 115 mg/dL (74-99); Non-African American GFR(CKD) 83 (>60 ml/min/1.73 sqM); Potassium 3.5 mmol/L (3.5-5.1); Sodium 136 mmol/L (137-145)
[2021-02-20] MEDS: CLOPIDOGREL 75 MG TAB PO SCH (12:45)
[2021-02-20 13:12] LABS: Basophils % (A) 0 %; Eosinophils # (A) 0.4 k/uL (0-0.7); Eosinophils % (A) 5 %; HGB 12.1 gm/dL (11.4-16.0); Lymphocytes # (A) 1.5 k/uL (1.0-4.8); Lymphocytes % (A) 17 %; MCHC 34.5 g/dL (31.0-37.0); MCV 92.7 fL (80.0-100.0); Mean Platelet Volume 7.9; Monocytes # (A) 0.6 k/uL (0-1.0); Monocytes % (A) 7 %; Neutrophils # (A) 6.2 k/uL (1.3-7.7); Neutrophils % (A) 70 %; Platelet Count 251 k/uL (150-450); RBC 3.78 m/uL (3.80-5.40); RDW 13.4 % (11.5-15.5); WBC 8.9 k/uL (3.8-10.6)
[2021-02-20 13:22] LABS: INR 1.1 (<1.2); Partial Thromboplastin Time 23.6 sec (22.0-30.0); Prothrombin Time 11.7 sec (9.0-12.0)
--- NOTE | 2021-02-20 13:22 | P.PN ---
Subjective 81-year-old pleasant female came in the with the dysphagia and foreign to have an NIH stroke score of around 4 patient qualified for TPA, patient received TPA and is being being monitored at this time patient also has new-onset atrial fibrillation but rate controlled at this time. Patient had an echo which showed normal ejection fraction but the showed severe pulmonary hypertension. Patient is clinically doing well but requiring oxygen because of which obtain x-ray which showed bilateral pulmonary edema because of which I'm giving her Lasix. Patient's speech abnormality this resolved. 02/20/2021 patient is clinically doing well. Patient is presently on 2 L of oxygen which can be tapered. Patient was started on aspirin awaiting MRI possibility of discharge tomorrow blood pressures well controlled. Constitutional: Denied any fatigue denied any fever. Cardio vascular: denied any chest pain, palpitations Gastrointestinal denied any nausea vomiting Pulmonary: Denied any shortness of breath cough Neurologic denied any new focal deficits All inpatient medications were reviewed and appropriate changes in these medications as dictated in the interval history and assessment and plan. PHYSICAL EXAMINATION: GENERAL: The patient is alert and oriented x3, not in any acute distress. Well developed, well nourished. HEENT: Pupils are round and equally reacting to light. EOMI. No scleral icterus. No conjunctival pallor. Normocephalic, atraumatic. No pharyngeal erythema. No thyromegaly. CARDIOVASCULAR: S1 and S2 present. No murmurs, rubs, or gallops. PULMONARY: Chest is clear to auscultation, no wheezing or crackles. ABDOMEN: Soft, nontender, nondistended, normoactive bowel sounds. No palpable organomegaly. MUSCULOSKELETAL: No joint swelling or deformity. EXTREMITIES: No cyanosis, clubbing, or pedal edema. NEUROLOGICAL: Gross neurological examination did not reveal any focal deficits. SKIN: Some bruises in both arms Assessment and plan -Cerebrovascular accident the patient had aphasia with improvement after TPA. I echocardiogram within normal limits patient is presently on aspirin -New-onset atrial fibrillation presently rate controlled patient just received TPA because of which she cannot started on anticoagulation will discuss with neurology regarding the appropriate timing of initiation of anticoagulation. Antiplatelet therapy as neurology. MRI is pending -Hypertension next and-type 2 diabetes mellitus -Coronary artery disease with stents in the past next line-asthma without any acute exacerbation DVT prophylaxis: Holding pharmacologic prophylaxis because of her recent TPA Objective - Vital Signs Vital signs: Vital Signs Temp 97.8 F 02/20/21 12:00 Pulse 77 02/20/21 12:00 Resp 16 02/20/21 12:00 BP 149/73 02/20/21 12:00 Pulse Ox 96 02/20/21 12:00 Intake & Output 02/19/21 02/20/21 02/20/21 18:59 06:59 18:59 Intake Total 383.75 240 Balance 383.75 240 Weight 64 kg Intake: Intake, IV Titration 383.75 Amount niCARdipine 20 mg In 383.75 Sodium Chloride 0.9% 192 ml @ 5 MG/HR 50 mls/hr IV .Q4H [facility] Rx#:[id number] Oral 240 Other: Voiding Method Indwelling Catheter Indwelling Catheter - Labs CBC & Chem 7: 02/20/21 12:44 02/20/21 11:18 Labs: Abnormal Lab Results - Last 24 Hours (Table) 02/20/21 02/20/21 02/20/21 Range/Units 11:18 11:34 12:44 RBC 3.78 L (3.80-5.40) m/uL Sodium 136 L (137-145) mmol/L Glucose 115 H (74-99) mg/dL POC Glucose (mg/dL) 113 H (75-99) mg/dL
[2021-02-20 16:33] LABS: Glucose,Whole Blood 95 mg/dL (75-99)
--- NOTE | 2021-02-20 17:08 | CONS ---
CONSULTATION Conchita is an 81-year-old lady with history of coronary artery disease, status post prior angioplasty, hypertension, diabetes and dyslipidemia who follows with Dr. 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 She tells me that she had cardiac catheterization and angioplasties in the past, apparently in [place], and developed sudden-onset confusion and inappropriate talking two days ago while she was at the [facility]. She went home and subsequently her brought her to hospital. She had a CT angiogram that revealed that the carotid arteries were normal. She was treated with tPA. On an echocardiogram I performed she had normal LV systolic function and severe pulmonary hypertension. An EKG shows atrial fibrillation with left axis deviation and nonspecific ST-T wave changes. Labs show that the hemoglobin is 12, platelet count is 250. Creatinine is 0.6. Lipid profile shows a total cholesterol of 116, LDL of 54. TSH is normal at 4.2, potassium is 3.5. Patient needs and will benefit from long-term anticoagulation with Xarelto 20 mg daily, and this could be started whenever it is okay with Neurology. PAST MEDICAL HISTORY: Significant for coronary artery disease, status post prior angioplasty, hypertension, diabetes, dyslipidemia. MEDICATIONS: Medications include Lotrel 10/40, Actos, Singulair, Toprol-XL 25 b.i.d., Imdur 60 daily, Lipitor and Xanax. ALLERGIES: There are NO KNOWN DRUG ALLERGIES. FAMILY HISTORY: Negative for premature coronary artery disease. SOCIAL HISTORY: Negative for smoking, EtOH abuse or drug abuse. REVIEW OF SYSTEMS: HEENT is unremarkable. CARDIAC: As described above. RESPIRATORY: Negative. GI: Negative. GENITOURINARY: Negative. ALLERGY/IMMUNOLOGY: Negative. SKIN: Negative. MUSCULOSKELETAL: Significant for arthritis. PSYCHOSOCIAL: Negative. ENDOCRINE: Negative. DERMATOLOGY: Negative. CONSTITUTIONAL: Negative. ONCOLOGICAL: Negative. OVERSIZE LOAD PILOT ESCORT: Significant for recent CVA. PHYSICAL EXAMINATION: Heart rate is 77 beats per minute, blood pressure 149/73, respiratory rate 18, O2 saturation is 96% on room air. There is no jugular venous distention. Carotid upstroke is normal. There is no bruit. Chest exam reveals good air entry bilaterally. Heart exam reveals first and second heart sounds. No gallop. Irregular rhythm. No murmur. Abdomen is soft. Examination of extremities did not reveal any edema. Peripheral pulses are felt. CT scan of the brain showed right temporal arteritis with cortical infarct. ASSESSMENT: 1. Cerebrovascular accident, status post tPA. 2. Persistent atrial fibrillation with controlled ventricular rate. 3. Pulmonary hypertension. 4. Coronary artery disease, status post angioplasty. PLAN: Patient will be started on Xarelto 20 mg daily whenever it is okay with the neurologist. She will be followed up in my office in a week's time. MMODL / IJN: [id number] /
[2021-02-20 20:23] LABS: Glucose,Whole Blood 155 mg/dL (75-99)
[2021-02-20] MEDS: ATORVASTATIN 20 MG TAB PO SCH (21:22)
[2021-02-21 06:18] LABS: Glucose,Whole Blood 90 mg/dL (75-99)
[2021-02-21] MEDS: INSULIN ASPART (NovoLOG) 100 UNIT/ML VIAL SQ SCH ×4 (06:19→20:34)
[2021-02-21] MEDS: lisinopriL 20 MG TAB PO SCH (09:13)
[2021-02-21] MEDS: HEPARIN SODIUM,PORCINE/PF 5,000 UNIT/0.5 ML SYRINGE SQ SCH ×2 (09:13→20:37)
[2021-02-21] MEDS: ISOSORBIDE MONONITRATE ER 60 MG TAB.ER.24H PO SCH (09:13)
[2021-02-21] MEDS: ASPIRIN 81 MG PO SCH (09:13)
[2021-02-21] MEDS: METOPROLOL SUCCINATE (ER) 25 MG TAB.ER.24H PO SCH ×2 (09:13→20:37)
[2021-02-21] MEDS: CLOPIDOGREL 75 MG TAB PO SCH (09:13)
[2021-02-21] MEDS: amLODIPine 10 MG TAB PO SCH (09:13)
[2021-02-21] MEDS: ALPRAZolam 0.5 MG TAB PO SCH ×2 (09:13→20:37)
[2021-02-21 10:12] LABS: HGB 12.1 gm/dL (11.4-16.0); MCH 31.2 pg (25.0-35.0); MCHC 33.6 g/dL (31.0-37.0); Mean Platelet Volume 8.1; Platelet Count 254 k/uL (150-450); RBC 3.87 m/uL (3.80-5.40); RDW 13.3 % (11.5-15.5)
[2021-02-21 10:35] LABS: Calcium 9.2 mg/dL (8.4-10.2); Potassium 3.8 mmol/L (3.5-5.1)
--- NOTE | 2021-02-21 10:53 | P.PN ---
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 Patient is admitted to the hospital secondary to CVA. Patient was found to have new onset atrial fibrillation. She remains in atrial fibrillation with controlled ventricular rate. Echocardiogram completed revealed ejection fraction 55-60%. Patient is currently on aspirin and Plavix. She is scheduled to undergo MRI of the brain today. Blood pressure this morning is elevated. However, patient has not received her morning antihypertensive medications. PHYSICAL EXAM: VITAL SIGNS: Reviewed. GENERAL: Well-developed in no acute distress. NECK: Supple. No JVD or thyromegaly LUNGS: Respirations even and unlabored. Lungs essentially clear to auscultation bilaterally. HEART: Irregular rate and rhythm. S1 and S2 heard. EXTREMITIES: Normal range of motion. No clubbing or cyanosis. Peripheral pulses intact. No lower extremity edema ASSESSMENT: Acute CVA, status post TPA New onset persistent atrial fibrillation with controlled ventricular rate History of coronary artery disease with previous stenting in the past in [place], exact details unknown Hypertension Hyperlipidemia Diabetes mellitus PLAN: Continue current cardiac medications Continue aspirin and Plavix Patient is scheduled for MRI of the brain today per neurology. Patient will require anticoagulation due to an new diagnosis of atrial fibrillation. Await further recommendations from neurology in terms of when anticoagulation may be started Monitor blood pressure. Will adjust medications as necessary. Further recommendations pending patient course Nurse practitioner note has been reviewed by physician. Signing provider agrees with the documented findings, assessment, and plan of care. Objective - Vital Signs Vital signs: Vital Signs Temp 99.2 F 02/21/21 09:05 Pulse 101 H 02/21/21 09:05 Resp 18 02/21/21 09:05 BP 214/83 02/21/21 09:05 Pulse Ox 97 02/21/21 09:05 Intake & Output 02/20/21 02/21/21 02/21/21 18:59 06:59 18:59 Intake Total 598 Output Total 1500 600 400 Balance -902 -600 -400 Weight 64 kg Intake: Oral 598 Output: Urine 1500 600 400 Other: Voiding Method Indwelling Catheter Indwelling Catheter Indwelling Catheter # Bowel Movements 0 - Labs CBC & Chem 7: 02/21/21 08:47 02/21/21 08:47 Labs: Abnormal Lab Results - Last 24 Hours (Table) 02/20/21 02/20/21 02/20/21 Range/Units 11:18 11:34 12:44 RBC 3.78 L (3.80-5.40) m/uL Sodium 136 L (137-145) mmol/L Glucose 115 H (74-99) mg/dL POC Glucose (mg/dL) 113 H (75-99) mg/dL 02/20/21 02/21/21 Range/Units 20:22 08:47 RBC (3.80-5.40) m/uL Sodium (137-145) mmol/L Glucose 181 H (74-99) mg/dL POC Glucose (mg/dL) 155 H (75-99) mg/dL
[2021-02-21 11:41] LABS: Glucose,Whole Blood 99 mg/dL (75-99)
--- NOTE | 2021-02-21 12:28 | P.PN ---
Subjective Progress Note Date: 02/21/21 The patient is seen at bedside and continue to be doing well. She feels back to baseline. She is pending to get MRI Brain today. Objective - Vital Signs Vital signs: Vital Signs Temp 99.2 F 02/21/21 09:05 Pulse 101 H 02/21/21 09:05 Resp 18 02/21/21 09:05 BP 214/83 02/21/21 09:05 Pulse Ox 97 02/21/21 09:05 Intake & Output 02/20/21 02/21/21 02/21/21 18:59 06:59 18:59 Intake Total 598 Output Total 1500 600 800 Balance -902 -600 -800 Weight 64 kg Intake: Oral 598 Output: Urine 1500 600 800 Other: Voiding Method Indwelling Catheter Indwelling Catheter Indwelling Catheter # Bowel Movements 0 - Exam GENERAL: The patient is lying in bed and is not in acute distress. NEUROLOGICAL: Higher mental function: The patient is awake, alert, oriented to self, place and time. She is following simple commands. No aphasia or No neglect. . Cranial nerves: The pupils are round, equal and reactive to light. Visual menard are full to confrontation throughout. Extraocular movement is intact no nystagmus is noted. Facial sensation is normal to touch throughout. The facial strength is normal throughout. Tongue is midline and moved [id number] without any difficulty. No dysarthria is noted. Motor: Gait is deferred. The strength is moving all extremities above gravity and no appreciable focal deficits. Normal tone and bulk. Cerebellum: Normal finger to nose bilaterally. Sensation: Sensation is normal to touch throughout. Plantars are downgoing bilaterally. WORK-UP: HbA1c: 6.1 (02/17/2021). No need for repeat. Initial CT of the head is reported as age-related atrophy and chronic small vessel ischemic change without acute intracranial process seen at this time. CT of the head on 02/18/2021 is reported as old right posterior temporal lobe infarct without change compared to exam 2 hours ago. I personally reviewed the CT of the head and compared to the earlier one and I felt the patient had an old hypodensity over the right temporal occipital region CT angiography of the head and neck is reported as negative CT head on 02/19/2021: Is reported as subacute right posterior temporal parietal cortical infarct without progression. Personally reviewed it and the patient had hypodensity over the right temporal occipital region on the initial presentation. Lipid panel is triglyceride of 55, cholesterol is 116, LDLs 54 and HDL is 50. TSH: 4.220 2-D echo was reported as severe concentric left ventricle hypertrophy. Ejection fraction of 55-60%. Left atrium is mildly dilated that. Severe tricuspid regurgitation present. Venous duplex of the left upper extremity is negative for DVT. - Labs CBC & Chem 7: 02/21/21 08:47 02/21/21 08:47 Labs: Abnormal Lab Results - Last 24 Hours (Table) 02/20/21 02/20/21 02/21/21 Range/Units 12:44 20:22 08:47 RBC 3.78 L (3.80-5.40) m/uL Glucose 181 H (74-99) mg/dL POC Glucose (mg/dL) 155 H (75-99) mg/dL Assessment and Plan Assessment: * Acute ischemic stroke, manifesting with expressive aphasia and right upper extremity weakness s/p IV tpa---symptoms improved (post IV tpa). Stroke etiology likely cardioembolic especially with new onset of atrial fibrillation * Appears old stroke on CT head over right occipital/temporal region. * New onset atrial fibrillation * Hypertension * Diabetes * Coronary artery disease, history of cardiac stenting. * Marijuana use. Plan: * Pending MRI the brain. * Continue aspirin 81mg daily and Plavix 75 mg daily (started during this admission). We'll consider starting the patient anticoagulation down the line for her new onset atrial fibrillation but will wait until MRI Brain then will give recommendation of approximate start date. Continue Lipitor 20 mg qhs for secondary stroke prophylaxis. * Continue neuro-checks. * On cardiac monitoring. * PT, OT and POLYMER MATERIALS CONSULTANT are consulted * Cardiology is on board. * We'll defer the rest of the medical management to the primary team. * For DVT prophylaxis: on subq heparin 5000U every 12 hours. * Upon discharge, the patient to follow-up with a neurologist within 1-2 weeks as outpatient. The plan is discussed with the patient's as well as her nurse. UPDATE: MRI of the brain is reported as on diffusion-weighted image there are globular foci of increased signal within the posterior parietal region as well as left occipital region compatible with embolic process. No additional abnormal areas of increased signal are seen that. Age-related atrophy and chronic small vessel ischemic change. Recommend the patient to be on started on Eliquis on 02/25/2021 and to hold off for now to avoid any at hemorrhagic conversion. One started on Eliquis recommend for the dual antiplatelets to be stopped from a neurological perspective. There is no other neurological workup needed at this time. Kobe Ramey MD Neuro-Hospitalist Time with Patient: Less than 30
--- NOTE | 2021-02-21 15:44 | MR ---
EXAMINATION TYPE: MR brain wo con DATE OF EXAM: 02/21/2021 1:22 PM COMPARISON: 07/30/2018 HISTORY: Rt arm weakness, aphasia. FINDINGS: The ventricles, basal cisterns and sulci overlying the cerebral convexities are mildly enlarged. There is evidence of moderate periventricular white matter ischemic demyelination. Remote deep white matter insults are also noted. On diffusion weighted imaging there are globular foci of increased signal within the posterior pariet al region as well as the left occipital region compatible with embolic process. No additional abnorma l areas of increased signal are seen. There is no evidence for midline shift or mass effect. Acute intracranial hemorrhage or extra-axial collection is not evident. The paranasal sinuses and mastoid air cells are well-aerated. IMPRESSION: 1.On diffusion weighted imaging there are globular foci of increased signal within the posterior buster etal region as well as the left occipital region compatible with embolic process. No additional abnor mal areas of increased signal are seen. 2. Age-related atrophic and chronic small vessel ischemic change.
[2021-02-21 16:28] LABS: Glucose,Whole Blood 106 mg/dL (75-99)
--- NOTE | 2021-02-21 17:56 | P.PN ---
Subjective Progress Note Date: 02/21/21 This is an 81-year-old female admitted with acute CVA, status post TPA, new onset persistent atrial fibrillation and multiple other medical issues. Evaluated by neurology and cardiology. Hypertensive. Neuro workup in progress with Brain MRI scheduled for later today. Speech this morning is clear and grace ropriate. Denies chest pain, palpitations or shortness of breath. Objective - Vital Signs Vital signs: Vital Signs Temp 98.8 F 02/21/21 16:00 Pulse 79 02/21/21 16:00 Resp 16 02/21/21 16:00 BP 182/72 02/21/21 16:00 Pulse Ox 98 02/21/21 16:00 Intake & Output 02/20/21 02/21/21 02/21/21 18:59 06:59 18:59 Intake Total 598 180 Output Total 4991 450 2423 Balance -756 -608 -2585 Weight 64 kg Intake: Oral 598 180 Output: Urine 2063 339 0863 Other: Voiding Method Indwelling Catheter Indwelling Catheter Indwelling Catheter # Bowel Movements 0 - Exam GENERAL: Sitting up in bed, alert and oriented x3, not in any acute distress. Well developed, well nourished. Speech clear and fluent-appropriate HEENT: Pupils are round and equally reacting to light. EOMI. No scleral icterus. No conjunctival pallor. Normocephalic, atraumatic. No pharyngeal erythema. No thyromegaly. CARDIOVASCULAR: S1 and S2 present. No murmurs, rubs, or gallops. PULMONARY: Chest is clear to auscultation, no wheezing or crackles. ABDOMEN: Soft, nontender, nondistended, normoactive bowel sounds. No palpable organomegaly. MUSCULOSKELETAL: No joint swelling or deformity. EXTREMITIES: No cyanosis, clubbing, or pedal edema. NEUROLOGICAL: Gross neurological examination did not reveal any focal deficits. SKIN: Some bruises in both arms - Labs CBC & Chem 7: 02/21/21 08:47 02/21/21 08:47 Labs: Abnormal Lab Results - Last 24 Hours (Table) 02/20/21 02/21/21 02/21/21 Range/Units 20:22 08:47 16:26 Glucose 181 H (74-99) mg/dL POC Glucose (mg/dL) 155 H 106 H (75-99) mg/dL Assessment and Plan Assessment: Acute ischemic CVA with aphasia, status post TPA, aphasia resolved, New-onset persistent atrial fibrillation Hypertension Diabetes mellitus CAD with history of stents Chronic intermittent asthma Plan: Continue on current medication regime ,monitoring and symptomatic treatment. Neuro workup being completed with brain MRI pending. Anticoagulation as per neurology. Speech therapy evaluation in progress. Discharge planning in progress for possibly later today or in a.m. The impression and plan of care has been dictated as directed. : I performed a history and examination of this patient, discussed the same with the dictator. I agree with the dictator's note ,documented as a scribe. Any additional findings or plans will be noted.
[2021-02-21 20:36] LABS: Glucose,Whole Blood 130 mg/dL (75-99)
[2021-02-21] MEDS: ATORVASTATIN 20 MG TAB PO SCH (20:37)
[2021-02-22 05:43] VITALS: RESP 18
[2021-02-22 06:06] LABS: Glucose,Whole Blood 132 mg/dL (75-99)
[2021-02-22] MEDS: INSULIN ASPART (NovoLOG) 100 UNIT/ML VIAL SQ SCH ×2 (06:32→12:02)
[2021-02-22] MEDS: amLODIPine 10 MG TAB PO SCH (09:20)
[2021-02-22] MEDS: ALPRAZolam 0.5 MG TAB PO SCH (09:20)
[2021-02-22] MEDS: ASPIRIN 81 MG PO SCH (09:20)
[2021-02-22] MEDS: lisinopriL 20 MG TAB PO SCH (09:20)
[2021-02-22] MEDS: ISOSORBIDE MONONITRATE ER 60 MG TAB.ER.24H PO SCH (09:20)
[2021-02-22] MEDS: HEPARIN SODIUM,PORCINE/PF 5,000 UNIT/0.5 ML SYRINGE SQ SCH (09:20)
[2021-02-22] MEDS: CLOPIDOGREL 75 MG TAB PO SCH (09:21)
[2021-02-22] MEDS: METOPROLOL SUCCINATE (ER) 25 MG TAB.ER.24H PO SCH (09:21)
[2021-02-22 10:18] LABS: African American GFR (CKD) >90 (>60 ml/min/1.73 sqM); Anion Gap 10 mmol/L; Blood Urea Nitrogen 12 mg/dL (7-17); Calcium 9.1 mg/dL (8.4-10.2); Carbon Dioxide 21 mmol/L (22-30); Chloride 102 mmol/L (98-107); Glucose 126 mg/dL (74-99); Magnesium 1.5 mg/dL (1.6-2.3); Non-African American GFR(CKD) 83 (>60 ml/min/1.73 sqM); Potassium 3.6 mmol/L (3.5-5.1); Sodium 133 mmol/L (137-145)
[2021-02-22] MEDS: MAGNESIUM SULFATE-D5W PMX 1 GM in DEXTROSE/WATER 1 100ML.BAG IVPB SCH ×2 (10:57→12:02)
[2021-02-22 11:04] VITALS: BP 122/74; PULSE 78; TEMP 98.3
[2021-02-22 11:42] LABS: Glucose,Whole Blood 138 mg/dL (75-99)
--- NOTE | 2021-02-22 12:22 | P.PN ---
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 Patient is admitted to the hospital secondary to CVA. Patient was found to have new onset atrial fibrillation. She remains in atrial fibrillation with controlled ventricular rate. Echocardiogram completed revealed ejection fraction 55-60%. Patient is currently on aspirin and Plavix. She is scheduled to undergo MRI of the brain today. Blood pressure this morning is elevated. However, patient has not received her morning antihypertensive medications. 02/22/2021 Patient examined this morning at the bedside. Patient denies chest pain or pressure. She denies shortness of breath. She does complain of pain in her feet. Patient's activities are warm with pulses present. Venous Doppler is pending. She remains in atrial fibrillation with controlled ventricular rate. PHYSICAL EXAM: VITAL SIGNS: Reviewed. GENERAL: Well-developed in no acute distress. NECK: Supple. No JVD or thyromegaly LUNGS: Respirations even and unlabored. Lungs essentially clear to auscultation bilaterally. HEART: Irregular rate and rhythm. S1 and S2 heard. EXTREMITIES: Normal range of motion. No clubbing or cyanosis. Peripheral pulses intact. No lower extremity edema ASSESSMENT: Acute CVA, status post TPA New onset persistent atrial fibrillation with controlled ventricular rate History of coronary artery disease with previous stenting in the past in [place], exact details unknown Hypertension Hyperlipidemia Diabetes mellitus Hypomagnesemia PLAN: Continue current cardiac medications Supplement magnesium Await results of lower extremity Doppler Neurology has cleared the patient to begin Eliquis on February 25. She may stop her aspirin and Plavix at that time. Further recommendations pending patient's course Nurse practitioner note has been reviewed by physician. Signing provider agrees with the documented findings, assessment, and plan of care. Objective - Vital Signs Vital signs: Vital Signs Temp 98.3 F 02/22/21 11:03 Pulse 78 02/22/21 11:03 Resp 18 02/22/21 11:03 BP 122/74 02/22/21 11:03 Pulse Ox 96 02/22/21 11:03 Intake & Output 02/21/21 02/22/21 02/22/21 18:59 06:59 18:59 Intake Total 420 120 Output Total 1625 1300 300 Balance -1205 -1300 -180 Weight 62.5 kg Intake: Oral 420 120 Output: Urine 1625 1300 300 Uretheral (Akers) 300 Other: Voiding Method Indwelling Catheter Indwelling Catheter Indwelling Catheter - Labs CBC & Chem 7: 02/21/21 08:47 02/22/21 09:41 Labs: Abnormal Lab Results - Last 24 Hours (Table) 02/21/21 02/21/21 02/22/21 Range/Units 16:26 20:34 06:05 Sodium (137-145) mmol/L Carbon Dioxide (22-30) mmol/L Glucose (74-99) mg/dL POC Glucose (mg/dL) 106 H 130 H 132 H (75-99) mg/dL Magnesium (1.6-2.3) mg/dL 02/22/21 02/22/21 Range/Units 09:41 11:41 Sodium 133 L (137-145) mmol/L Carbon Dioxide 21 L (22-30) mmol/L Glucose 126 H (74-99) mg/dL POC Glucose (mg/dL) 138 H (75-99) mg/dL Magnesium 1.5 L (1.6-2.3) mg/dL
--- NOTE | 2021-02-22 12:24 | US ---
EXAMINATION TYPE: US venous doppler duplex LE LT DATE OF EXAM: 02/22/2021 10:02 AM COMPARISON: 02/20/2021 CLINICAL HISTORY: left leg pain/swelling. Exam done portable SIDE PERFORMED: left TECHNIQUE: The lower extremity deep venous system is examined utilizing real time linear array sonog stanislaw with graded compression, doppler sonography and color-flow sonography. VESSELS IMAGED: Common Femoral Vein Deep Femoral Vein Greater Saphenous Vein * Femoral Vein Popliteal Vein Small Saphenous Vein * Proximal Calf Veins (* superficial vessels) Left Leg: Appears negative for DVT 5.8 x 2.0 x 2.0cm Rivas's cyst left popliteal fossa IMPRESSION: 1. There is a large 5.8 cm popliteal fossa cyst. 2. No diagnostic evidence of DVT as visualized.
--- NOTE | 2021-02-22 13:48 | P.PN ---
Subjective Progress Note Date: 02/22/21 The patient is seen at bedside who is accompanied by her and she continues to feels she is doing well. She denies of any new neurological problems. Objective - Vital Signs Vital signs: Vital Signs Temp 98.3 F 02/22/21 11:03 Pulse 78 02/22/21 11:03 Resp 18 02/22/21 11:03 BP 122/74 02/22/21 11:03 Pulse Ox 96 02/22/21 11:03 Intake & Output 02/21/21 02/22/21 02/22/21 18:59 06:59 18:59 Intake Total 420 120 Output Total 1625 1300 300 Balance -1205 -1300 -180 Weight 62.5 kg Intake: Oral 420 120 Output: Urine 1625 1300 300 Uretheral (Akers) 300 Other: Voiding Method Indwelling Catheter Indwelling Catheter Indwelling Catheter - Exam GENERAL: The patient is lying in bed and is not in acute distress. NEUROLOGICAL: Higher mental function: The patient is awake, alert, oriented to self, place and time. She is following simple commands. No aphasia or No neglect. . Cranial nerves: The pupils are round, equal and reactive to light. Visual menard are full to confrontation throughout. Extraocular movement is intact no nystagmus is noted. Facial sensation is normal to touch throughout. The facial strength is normal throughout. Tongue is midline and moved [id number] without any difficulty. No dysarthria is noted. Motor: Gait is deferred. The strength is moving all extremities above gravity and no appreciable focal deficits. Normal tone and bulk. Cerebellum: Normal finger to nose bilaterally. Sensation: Sensation is normal to touch throughout. Plantars are downgoing bilaterally. WORK-UP: HbA1c: 6.1 (02/17/2021). No need for repeat. Initial CT of the head is reported as age-related atrophy and chronic small vessel ischemic change without acute intracranial process seen at this time. CT of the head on 02/18/2021 is reported as old right posterior temporal lobe infarct without change compared to exam 2 hours ago. I personally reviewed the CT of the head and compared to the earlier one and I felt the patient had an old hypodensity over the right temporal occipital region CT angiography of the head and neck is reported as negative CT head on 02/19/2021: Is reported as subacute right posterior temporal parietal cortical infarct without progression. Personally reviewed it and the patient had hypodensity over the right temporal occipital region on the initial presentation. MRI of the brain is reported as on diffusion-weighted image there are globular foci of increased signal within the posterior parietal region as well as left occipital region compatible with embolic process. No additional abnormal areas of increased signal are seen that. Age-related atrophy and chronic small vessel ischemic change. Lipid panel is triglyceride of 55, cholesterol is 116, LDLs 54 and HDL is 50. TSH: 4.220 2-D echo was reported as severe concentric left ventricle hypertrophy. Ejection fraction of 55-60%. Left atrium is mildly dilated that. Severe tricuspid regurgitation present. Venous duplex of the left upper extremity is negative for DVT. Venous duplex of the left lower extremities reported as there is a large 5.8 cm popliteal fossa cyst. No diagnostic evidence of DVT visualized. - Labs CBC & Chem 7: 02/21/21 08:47 02/22/21 09:41 Labs: Abnormal Lab Results - Last 24 Hours (Table) 02/21/21 02/21/21 02/22/21 Range/Units 16:26 20:34 06:05 Sodium (137-145) mmol/L Carbon Dioxide (22-30) mmol/L Glucose (74-99) mg/dL POC Glucose (mg/dL) 106 H 130 H 132 H (75-99) mg/dL Magnesium (1.6-2.3) mg/dL 02/22/21 02/22/21 Range/Units 09:41 11:41 Sodium 133 L (137-145) mmol/L Carbon Dioxide 21 L (22-30) mmol/L Glucose 126 H (74-99) mg/dL POC Glucose (mg/dL) 138 H (75-99) mg/dL Magnesium 1.5 L (1.6-2.3) mg/dL Assessment and Plan Assessment: * Acute ischemic stroke (left parietal/occipital region) manifesting with expressive aphasia and right upper extremity weakness s/p IV tpa---symptoms improved (post IV tpa). Stroke etiology likely cardioembolic especially with new onset of atrial fibrillation * Appears old stroke on CT head over right occipital/temporal region. * New onset atrial fibrillation * Hypertension * Diabetes * Coronary artery disease, history of cardiac stenting. * Marijuana use. Plan: * Continue aspirin 81mg daily and Plavix 75 mg daily (started during this admiss ion). Recommend starting Eliquis on 02/25/2021 and to hold off for now to avoid any at hemorrhagic conversion. Once on Eliquis, recommend for the dual antiplatelets to be stopped from a neurological perspective. Continue Lipitor 20 mg qhs for secondary stroke prophylaxis. * Continue neuro-checks. * On cardiac monitoring. * PT, OT and PHARMACY PICKING TECH are consulted * Cardiology is on board. * We'll defer the rest of the medical management to the primary team. * For DVT prophylaxis: on subq heparin 5000U every 12 hours. * Upon discharge, the patient to follow-up with a neurologist within 1-2 weeks as outpatient. The plan is discussed with the patient and her (who is at bedside) as well as her nurse. There is no other neurological workup needed at this time. Kobe Ramey MD Neuro-Hospitalist Time with Patient: Less than 30
--- NOTE | 2021-02-22 15:05 | P.DS ---
Providers Date of admission: 02/18/21 20:18 Expected date of discharge: 02/22/21 Attending physician: Randolph Hernandez Consults: 02/18/21 20:16 Consult Physician Urgent Consulting Provider: Darvin Chance Consult Reason/Comments: CVA Do you want consulting provider notified?: Already Contacted 02/19/21 23:23 Consult Physician Routine Consulting Provider: Sukumar Hampton Consult Reason/Comments: New onset Afib Do you want consulting provider notified?: Yes, Notify in am Primary care physician: Randolph Hernandez Hospital Course: Final Diagnoses: Acute ischemic CVA (left parietal/occipital) with aphasia, right upper extremity weakness, status post TPA, symptoms resolved. New-onset persistent atrial fibrillation Hypertension Diabetes mellitus CAD with history of stents Chronic intermittent asthma Hospital course:This is an 81-year-old female admitted with acute CVA, status post TPA, new onset persistent atrial fibrillation and multiple other medical issues. Evaluated by neurology and cardiology. Hypertensive. Neuro workup in progress with Brain MRI scheduled for later today. Speech this morning is clear and appropriate. Denies chest pain, palpitations or shortness of breath. Significant clinical improvement. Denies any new neurological problems, speech clear, fluent, no motor strength weakness. Completed MRI of the brain-reported diffusion weighted image, globally or foci of increased signal within the posterior parietal region as well as left occipital region compatible with embolic process, no additional abnormal areas of increased signal seen, age-r elated atrophy and chronic small vessel ischemic change. Denies chest pain, palpitations or shortness of breath. Venous Doppler of left leg reported negative for DVT, positive large 5.8 cm popliteal fossa cyst. Regarding new onset atrial fibrillation, patient will currently be discharged on aspirin and Plavix with anticoagulation of Eliquis to currently hold and initiate on 02/25/2021. Once on Eliquis, recommend dual oral antiplatelets be discontinued as per neurology. Cleared by neurology and cardiology for discharge. Patient will be discharged home today in a stable condition with gua rded prognosis. The impression and plan of care has been dictated as directed. : I performed a history and examination of this patient, discussed the same with the dictator. I agree with the dictator's note ,documented as a scribe. Any additional findings or plans will be noted. Patient Condition at Discharge: Stable Plan - Discharge Summary New Discharge Prescriptions: New Aspirin EC [Ecotrin Low Dose] 81 mg PO DAILY #30 tab Apixaban [Eliquis] 5 mg PO BID #60 tab Clopidogrel [Plavix] 75 mg PO DAILY #30 tab Acetaminophen Tab [Tylenol] 650 mg PO Q6HR PRN tab PRN Reason: Pain Continue Isosorbide Mononitrate ER [Imdur] 60 mg PO DAILY Montelukast [Singulair] 10 mg PO HS Metoprolol Succinate [Toprol XL] 25 mg PO BID Atorvastatin [Lipitor] 20 mg PO HS ALPRAZolam [Xanax] 0.5 mg PO BID Pioglitazone [Actos] 30 mg PO HS amLODIPine BESYLATE/BENAZEPRIL [Lotrel 10-40 MG] 1 cap PO DAILY Discharge Medication List ALPRAZolam [Xanax] 0.5 mg PO BID 08/03/16 [History] Atorvastatin [Lipitor] 20 mg PO HS 08/03/16 [History] Isosorbide Mononitrate ER [Imdur] 60 mg PO DAILY 08/03/16 [History] Metoprolol Succinate [Toprol XL] 25 mg PO BID 08/03/16 [History] Montelukast [Singulair] 10 mg PO HS 08/03/16 [History] Pioglitazone [Actos] 30 mg PO HS 12/21/17 [History] amLODIPine BESYLATE/BENAZEPRIL [Lotrel 10-40 MG] 1 cap PO DAILY 02/18/21 [History] Acetaminophen Tab [Tylenol] 650 mg PO Q6HR PRN tab 02/22/21 [Rx] Apixaban [Eliquis] 5 mg PO BID #60 tab 02/22/21 [Rx] Aspirin EC [Ecotrin Low Dose] 81 mg PO DAILY #30 tab 02/22/21 [Rx] Clopidogrel [Plavix] 75 mg PO DAILY #30 tab 02/22/21 [Rx] Follow up Appointment(s)/Referral(s): Randolph Hernandez DO [Primary Care Provider] - 3 Days (SundayFebruary 25 2:00) Kobe Ramey MD [STAFF PHYSICIAN] - 1 Week ([facility] [phone]) Otoniel Vasques DO [STAFF PHYSICIAN] - 10 Days (office will call you with appt. time) Bashir Miller MD [STAFF PHYSICIAN] - 1 Week (office will call you with appt. time) Patient Instructions/Handouts: Stroke (GEN) Activity/Diet/Wound Care/Special Instructions: BEGIN ELIQUIS ON FEBRUARY 25. ONCE YOU START ELIQUIS, DO NOT TAKE ASPIRIN OR PLAVIX ANYMORE Discharge Disposition: HOME SELF-CARE
== END 2021-02-22 14:01 | disposition home or self-care (01) | DRG 62 ==
LOC: EC 17:45 → 2SICU 20:18 → 3SCARD 02-19 22:15
PROVIDERS: ADMIT Family Medicine; ATTEND Family Medicine
DX: I63.40 Cerebral infarction due to embolism of unspecified cerebral artery (principal); I48.19 Other persistent atrial fibrillation; J81.1 Chronic pulmonary edema; E11.9 Type 2 diabetes mellitus without complications; E78.5 Hyperlipidemia, unspecified; E83.42 Hypomagnesemia; I10 Essential (primary) hypertension; I25.10 Atherosclerotic heart disease of native coronary artery without angina pectoris; I25.2 Old myocardial infarction; I27.20 Pulmonary hypertension, unspecified; J45.20 Mild intermittent asthma, uncomplicated; R13.10 Dysphagia, unspecified; R29.704 NIHSS score 4; R47.01 Aphasia; Z20.822 Contact with and (suspected) exposure to COVID-19; Z79.01 Long term (current) use of anticoagulants; Z79.02 Long term (current) use of antithrombotics/antiplatelets; Z79.4 Long term (current) use of insulin; Z79.82 Long term (current) use of aspirin; Z79.84 Long term (current) use of oral hypoglycemic drugs; Z79.899 Other long term (current) drug therapy; Z86.73 Personal history of transient ischemic attack (TIA), and cerebral infarction without residual deficits; Z87.891 Personal history of nicotine dependence; Z90.710 Acquired absence of both cervix and uterus; Z95.5 Presence of coronary angioplasty implant and graft
CPT/HCPCS: 36415; 70450; 70496; 70498; 70551; 71046; 80048; 80053; 80061; 83735; 84443; 84484; 85025; 85027; 85610; 85730; 87635; 93005; 93306; 94760; 96361; 96374; 99285

== ENCOUNTER 2021-06-24 06:19 | Day surgery (SDC) | payer MEDICARE ==
[2021-06-23 09:14] VITALS: BMI 25.9
[~2021-06-24 06:19] MED LIST changes: -ACETAMINOPHEN TAB 500 MG TAB PO ONE; -MELOXICAM 7.5 MG TAB PO ONE; -ONDANSETRON 4 MG/2 ML VIAL IVP ONE; -TRANEXAMIC ACID 1,000 MG in SODIUM CHLORIDE 0.9% 50 ML IVPB ONE; +ceFAZolin 1 GM in SODIUM CHLORIDE 0.9% IRRIG BTL 250 ML IRRIGATION PRN; -ceFAZolin IN SWFI 2 GM/20 ML SYRINGE IVP ONE; -fentaNYL (PF) 50 MCG/ML 2 ML AMP IV PRN
[2021-06-24] MEDS ORDERED: SODIUM CHLORIDE 0.9% 1,000 ML IV ONE (06:44)
[2021-06-24 06:54] LABS: Glucose,Whole Blood 103 mg/dL (75-99)
[2021-06-24] MEDS ORDERED: LIDOCAINE 1% INJ 10MG/ML (20 ML MDV) ONE (07:20)
[2021-06-24] MEDS ORDERED: IOPAMIDOL-370 50ML BTL INJ ONE (08:00)
[2021-06-24] MEDS ORDERED: fentaNYL (PF) 50 MCG/ML 2 ML AMP IVP ONE (08:15)
[2021-06-24] MEDS ORDERED: MIDAZOLAM 2 MG/2 ML VIAL IVP ONE (08:15)
[2021-06-24] MEDS ORDERED: fentaNYL (PF) 50 MCG/ML 2 ML AMP ONE (08:15)
[2021-06-24] MEDS ORDERED: LIDOCAINE 1% INJ 10MG/ML (20 ML MDV) SQ ONE (08:19)
[2021-06-24] MEDS ORDERED: ACETAMINOPHEN TAB 325 MG TAB PO PRN (08:59)
--- NOTE | 2021-06-24 09:09 | P.PCN ---
Date of Procedure: 06/24/21 Preoperative Diagnosis: Sick sinus syndrome with underlying atrial fibrillation with tachy and bradycardia episodes Postoperative Diagnosis: The same Procedure(s) Performed: Single-chamber permanent pacemaker implantation, axillary venography Description of Procedure: HISTORY: This is a 81-year-old female with history of atrial fibrillation with tachybradycardia syndrome and also a history of previous TIA, has been having significant pauses with heart rates of 20 alternating with heart rates of up to 110. Patient was advised to have permanent pacemaker by Dr. BURTON. CONSENT: Dr. Burton has discussed the risks, benefits and alternative therapies for the above-mentioned procedure and for both sedation/analgesia as well as necessary blood product administration, if indicated, as they pertain to this patient. The patient has indicated understanding and acceptance of the risks and procedures discussed. PROCEDURE: Patient was brought to the lab in a fasting state. Patient was prepped and draped in the usual fashion. Patient was given IV sedation with fentanyl and Versed. The skin below the left clavicle was infiltrated with lidocaine. An incision was made parallel to deltopectoral groove was deepened until the pectoral fascia was exposed. A pocket was created by blunt dissection and cautery. Axillary venography was performed to delineate the course of the axillary vein. A single stick was performed into extrathoracic portion of the axillary vein and a single sheath was advanced over the guidewires and left in subclavian vein. Conscious Sedation: Versed 1 mg Fentanyl 25 g Duration 36 minutes LEADS: VENTRICULAR: This is manufactured by [employer]. Model number is 5076-58. And the serial number is [id number] new THE DEVICE: This is manufactured by [employer]. Model number is [id number] and the serial number is [id number] The ventricular lead is maneuvered l with help of a straight and curved stylets into the left ventricle apical region. Satisfactory position was obtained and threshold measurements were made. . THRESHOLDS: VENTRICLE: The minimal patient threshold is 0.5 at pulse width of 0.4. The impedance is 798. R-wave: 14.1, The leads and pulse generator remained in the pocket after it was washed with antibiotics. Pocket was closed in the usual fashion. The fascia was closed with 2-0 Prolene ,the subcutaneous tissue was closed with 3-0 Prolene and the skin was closed with 4-0 Prolene. PROGRAMMING: MODE: VVIR RATE: 60 to 130 OUTPUT: Ventricle: 3.5 volts FINAL IMPRESSION: #1. Axillary venography #2. Single-chamber permanent pacemaker implantation COMPLICATIONS: . None PLAN: Patient will monitored on the telemetry unit. Prophylactic antibacterial be continued. Chest x-ray in the morning. Possible discharge in am
[2021-06-24] MEDS: SODIUM CHLORIDE 0.9% 1,000 ML IV SCH ×2 (16:31)
[2021-06-24] MEDS ORDERED: PIOGLITAZONE 30 MG TAB PO SCH (21:00)
[2021-06-24] MEDS ORDERED: ATORVASTATIN 20 MG TAB PO SCH (21:00)
[2021-06-24] MEDS ORDERED: MONTELUKAST 10 MG TAB PO SCH (21:00)
[2021-06-24] MEDS: ALPRAZolam 0.5 MG TAB PO SCH (21:15)
[2021-06-25] MEDS: SODIUM CHLORIDE 0.9% 1,000 ML IV SCH ×2 (03:28)
--- NOTE | 2021-06-25 07:07 | XR ---
EXAMINATION TYPE: XR chest 2V DATE OF EXAM: 06/25/2021 6:44 AM COMPARISON:Chest radiographs from 02/20/2020 TECHNIQUE: XR chest 2V Frontal and lateral views of the chest. CLINICAL INDICATION:Female, 81 years old with history of Lead placement check; FINDINGS: Lungs/Pleura: There is no evidence of pleural effusion, focal consolidation, or pneumothorax. Simila r increased interstitial lung markings the lungs. Pulmonary vascularity: Unremarkable. Heart/mediastinum: Cardiomediastinal silhouette is unremarkable. Single-lead cardiac conduction devic e overlying the left hemithorax with lead projecting over the right ventricle. Musculoskeletal: No acute osseous pathology. There is fixation hardware in the lower cervical spine. IMPRESSION: 1. Left cardiac pacer lead projecting over the right ventricle. 2. No acute cardiopulmonary disease/process.
[2021-06-25 08:13] VITALS: BP 155/49; RESP 14; TEMP 98
[2021-06-25] MEDS ORDERED: ISOSORBIDE MONONITRATE ER 60 MG TAB.ER.24H PO SCH (09:00)
[2021-06-25] MEDS ORDERED: CHOLECALCIFEROL 25 MCG (1000 IU) TABLET PO SCH (09:00)
[2021-06-25] MEDS ORDERED: amLODIPine 10 MG TAB PO SCH (09:00)
[2021-06-25] MEDS ORDERED: CALCIUM CARBONATE 500 MG CHEWABLE PO SCH (09:00)
[2021-06-25] MEDS ORDERED: lisinopriL 20 MG TAB PO SCH (09:00)
[2021-06-25] MEDS: ALPRAZolam 0.5 MG TAB PO SCH (09:34)
[2021-06-25 10:32] VITALS: PULSE 63
[2021-06-26] MEDS ORDERED: FUROSEMIDE 20 MG TAB PO SCH (09:00)
--- NOTE | 2021-06-26 13:59 | P.DS ---
Providers Date of admission: t Expected date of discharge: 06/25/21 Attending physician: Horace Engle Primary care physician: [facility] Course: History of present illness: This is an 81-year-old female patient of Dr. Denice Miller with past medical history of atrial fibrillation with tachybradycardia syndrome, previous TIA. Patient was found to have significant pauses with heart rate at 20 alternating with heart rate of 110. Patient was advised for permanent pacemaker and underwent implantation on 06/24 of [employer] single-chamber permanent pacemaker. Pacemaker has been checked this morning and is functioning properly. Chest x-ray shows no postprocedure complications. Patient states that she is feeling very well. Patient will be discharged home today in stable condition. Assessment: Tachybradycardia syndrome Plan: Status post implantation of single-chamber permanent pacemaker/[employer] Nurse practitioner note has been reviewed, I agree with documented findings and plan of care. Patient was seen and examined. Patient Condition at Discharge: Good Plan - Discharge Summary Discharge Rx Participant: No New Discharge Prescriptions: New Cephalexin [Keflex] 500 mg PO Q8HR 3 Days #9 cap Continue Isosorbide Mononitrate ER [Imdur] 60 mg PO DAILY Montelukast [Singulair] 10 mg PO HS Atorvastatin [Lipitor] 20 mg PO HS ALPRAZolam [Xanax] 0.5 mg PO BID Pioglitazone [Actos] 30 mg PO HS Apixaban [Eliquis] 5 mg PO BID #60 tab Calcium Carbonate [Calcium] 600 mg PO DAILY amLODIPine BESYLATE/BENAZEPRIL [Lotrel 10-40 MG] 1 cap PO DAILY Clopidogrel [Plavix] 75 mg PO DAILY #30 tab Furosemide [Lasix] 20 mg PO Q3D Cholecalciferol [Vitamin D3 (25 Mcg = 1000 Iu)] 25 mcg PO DAILY Discharge Medication List ALPRAZolam [Xanax] 0.5 mg PO BID 08/03/16 [History] Atorvastatin [Lipitor] 20 mg PO HS 08/03/16 [History] Isosorbide Mononitrate ER [Imdur] 60 mg PO DAILY 08/03/16 [History] Montelukast [Singulair] 10 mg PO HS 08/03/16 [History] Pioglitazone [Actos] 30 mg PO HS 12/21/17 [History] amLODIPine BESYLATE/BENAZEPRIL [Lotrel 10-40 MG] 1 cap PO DAILY 02/18/21 [History] Apixaban [Eliquis] 5 mg PO BID #60 tab 02/22/21 [Rx] Clopidogrel [Plavix] 75 mg PO DAILY #30 tab 02/22/21 [Rx] Calcium Carbonate [Calcium] 600 mg PO DAILY 06/23/21 [History] Cholecalciferol [Vitamin D3 (25 Mcg = 1000 Iu)] 25 mcg PO DAILY 06/23/21 [History] Furosemide [Lasix] 20 mg PO Q3D 06/23/21 [History] Cephalexin [Keflex] 500 mg PO Q8HR 3 Days #9 cap 06/25/21 [Rx] Follow up Appointment(s)/Referral(s): Bashir Miller MD [STAFF PHYSICIAN] - 07/01/21 2:30 pm (Device clinic follow up appt is on July 01 at 2:30 Pm ) Patient Instructions/Handouts: Procedural Sedation (ED), Pacemaker (DC) Activity/Diet/Wound Care/Special Instructions: Resume home medications Sunday evening. Discharge Disposition: HOME SELF-CARE
== END 2021-06-25 11:25 | disposition home or self-care (01) ==
LOC: CATHEP 06:19 → 6NMEDSUR 10:34 → CATHEP 06-25 11:25
PROVIDERS: ATTEND Internal Medicine Cardiovascular Disease
DX: I49.5 Sick sinus syndrome (principal); I48.91 Unspecified atrial fibrillation; Z86.73 Personal history of transient ischemic attack (TIA), and cerebral infarction without residual deficits; Z20.822 Contact with and (suspected) exposure to COVID-19
CPT/HCPCS: 33207; 87635; 71046; C1769 ×2; C1892; C1898; C1786; J2250; J0690; J2001; J3010; Q9967